=== PATIENT | female | born 1970 | race Caucasian/White ===

== ENCOUNTER 2020-04-07 00:19 | Inpatient (IN) ==
[2020-04-07] MEDS ORDERED: Naloxone 0.4 MG/ML INJ IVP PRN (04:24)
[2020-04-07] MEDS ORDERED: Acetaminophen IV 1,000 MG/100 ML BAG IVPB ONE (04:58)
[2020-04-07] MEDS: Piperacillin/Tazobactam 3.375 GM in 0.9 % Sodium Chloride Mini Bag 100 ML IVPB SCH ×2 (05:00→13:39)
[2020-04-07] MEDS: *HR* HYDROmorphone (PF) 1 MG/ML SYRINGE IVP PRN ×3 (05:00→13:38)
[2020-04-07 05:03] LABS: Basophils % 0.3 %; Eosinophils # 0.1 K/mcL (0.0-0.6); Eosinophils % 0.9 %; Hematocrit 41.3 % (35.3-44.9); Hemoglobin 13.7 g/dL (11.5-15.4); Immature Granulocytes % 0.5 % (0-4); Lymphocytes % 17.2 %; Mean Corpuscular HGB Conc 33.2 g/dL (31.6-35.5); Mean Corpuscular Hemoglobin 31.6 pg (28.0-33.3); Mean Corpuscular Volume 95.4 fL (83.0-100.0); Mean Platelet Volume 10.5 fL (9.4-12.4); Monocytes # 0.8 K/mcL (0.0-1.3); Monocytes % 6.7 %; Neutrophils # 8.6 K/mcL (1.6-8.9); Platelet Count 164 K/mcL (140-400); Red Blood Count 4.33 M/mcL (3.82-4.97); Red Cell Distribution Width 11.9 % (11.5-14.5); Segmented Neutrophils % 74.4 %; White Blood Count 11.6 K/mcL (4.3-11.1)
[2020-04-07] MEDS ORDERED: Ringers Solution, Lactated 1,000 ML IVC ONE (05:05)
[2020-04-07 05:13] LABS: INR 1.1; Prothrombin Time 12.6 Seconds (9.4-12.1)
[2020-04-07 05:20] LABS: Alanine Aminotransferase 79 Units/L (7-52); Albumin 3.6 g/dL (3.5-5.7); Albumin/Globulin Ratio 1.5 (1.1-2.2); Alkaline Phosphatase 66 Units/L (34-104); Aspartate Amino Transferase 65 Units/L (13-39); BUN/Creatinine Ratio 25 (6-26); Bilirubin,Direct 0.2 mg/dL (0.0-0.2); Bilirubin,Indirect 0.5 mg/dL (0.0-1.0); Bilirubin,Total 0.7 mg/dL (0.3-1.0); Blood Urea Nitrogen 14 mg/dL (6-20); Calcium 8.4 mg/dL (8.6-10.3); Carbon Dioxide 26 mEq/L (23-29); Chloride 107 mEq/L (98-107); Globulin 2.4 g/dL (2.4-3.5); Glucose 111 mg/dL (70-105); Osmolality,Calculated 289 (280-300); Potassium 3.8 mEq/L (3.5-5.1); Sodium 139 mEq/L (136-145); eGFR For African Americans > 60 (> 60); eGFR For Non-African Americans > 60 (> 60)
[2020-04-07] MEDS: Ringers Solution, Lactated 1,000 ML IVC SCH (07:16)
[2020-04-07] MEDS: Ondansetron 4 MG/2 ML VIAL IVP PRN (09:44)
[2020-04-07] MEDS ORDERED: *HR* Promethazine 25 MG/ML VIAL IM ONE (13:52)
[2020-04-07] MEDS ORDERED: *HR* FentaNYL (PF) 100 MCG/2 ML VIAL ONE (17:20)
[2020-04-07] MEDS ORDERED: *HR* Midazolam HCl 2 MG/2 ML VIAL ONE (17:20)
[2020-04-07] MEDS ORDERED: *HR* Propofol 200 MG/20 ML VIAL IVP ONE (17:20)
[2020-04-07] MEDS ORDERED: Dexamethasone 4 MG/ML VIAL ONE ×2 (17:24→21:37)
[2020-04-07] MEDS ORDERED: Lidocaine -MPF 2% 2 ML VIAL ONE (17:24)
[2020-04-07] MEDS ORDERED: Ondansetron 4 MG/2 ML VIAL ONE (17:24)
[2020-04-07] MEDS ORDERED: *HR* Rocuronium Bromide 50 MG/5 ML VIAL ONE ×2 (17:25→21:26)
[2020-04-07] MEDS ORDERED: *HR* Succinylcholine 200 MG/10 ML VIAL IVP ONE (17:25)
[2020-04-07] MEDS ORDERED: Lidocaine -MPF 4% 5 ML AMPUL ONE (17:38)
[2020-04-07 18:27] LABS: Adenovirus Not Detected (Not Detect); Bordetella Pertussis Not Detected (Not Detect); Chlamydophila pneumoniae Not Detected (Not Detect); Coronavirus 229E Not Detected (Not Detect); Coronavirus HKU1 Not Detected (Not Detect); Coronavirus NL63 Not Detected (Not Detect); Coronavirus OC43 Not Detected (Not Detect); Human Metapneumovirus Not Detected (Not Detect); Human Rhinovirus/Enterovirus Not Detected (Not Detect); Influenza A Subtype 2009 H1 Not Detected (Not Detect); Influenza B Not Detected (Not Detect); Mycoplasma pneumoniae Not Detected (Not Detect); Parainfluenza Virus 1 Not Detected (Not Detect); Parainfluenza Virus 2 Not Detected (Not Detect); Parainfluenza Virus 3 Not Detected (Not Detect); Parainfluenza Virus 4 Not Detected (Not Detect); Respiratory Syncytial Virus Not Detected (Not Detect)
[2020-04-07 18:30] LABS: SARS-CoV-2 DETECTED (Not Detect)
[2020-04-07] MEDS ORDERED: *HR* HYDROMORPHONE 2 MG/ML VIAL ONE (22:59)
[2020-04-08] MEDS: Piperacillin/Tazobactam 3.375 GM in 0.9 % Sodium Chloride Mini Bag 100 ML IVPB SCH ×4 (00:45→21:13)
[2020-04-08] MEDS: Ondansetron 4 MG/2 ML VIAL IVP PRN (00:48)
[2020-04-08] MEDS: Ringers Solution, Lactated 1,000 ML IVC SCH (01:17)
[2020-04-08] MEDS: *HR* HYDROmorphone (PF) 1 MG/ML SYRINGE IVP PRN (01:18)
[2020-04-08] MEDS ORDERED: Naloxone 0.4 MG/ML INJ IVP PRN (03:05)
[2020-04-08] MEDS ORDERED: Ondansetron 4 MG/2 ML VIAL IVP PRN (03:05)
[2020-04-08] MEDS ORDERED: Ringers Solution, Lactated 1,000 ML IVC SCH ×2 (03:05→10:30)
[2020-04-08] MEDS: Acetaminophen IV 1,000 MG/100 ML BAG IVPB SCH ×4 (04:04→21:14)
[2020-04-08] MEDS: *HR* Heparin 5,000 UNIT/ML VIAL SQ SCH ×3 (04:06→21:14)
[2020-04-08] MEDS: Morphine PCA 30 MG/ 30 ML 30 ML PCA.VIAL IVC PRN ×3 (04:30→18:22)
[2020-04-08 06:22] LABS: Basophils % 0.3 %; Hematocrit 43.4 % (35.3-44.9); Hemoglobin 14.4 g/dL (11.5-15.4); Immature Granulocytes % 0.4 % (0-4); Mean Corpuscular HGB Conc 33.2 g/dL (31.6-35.5); Mean Corpuscular Hemoglobin 31.9 pg (28.0-33.3); Mean Platelet Volume 10.7 fL (9.4-12.4); Monocytes # 0.7 K/mcL (0.0-1.3); Monocytes % 5.1 %; Neutrophils # 11.1 K/mcL (1.6-8.9); Platelet Count 202 K/mcL (140-400); Red Blood Count 4.52 M/mcL (3.82-4.97); Red Cell Distribution Width 11.9 % (11.5-14.5); Segmented Neutrophils % 86.2 %; White Blood Count 12.8 K/mcL (4.3-11.1)
[2020-04-08] MEDS: Pantoprazole 40 MG VIAL IVP SCH (06:24)
[2020-04-08 06:42] LABS: BUN/Creatinine Ratio 22 (6-26); Blood Urea Nitrogen 12 mg/dL (6-20); Calcium 8.8 mg/dL (8.6-10.3); Carbon Dioxide 24 mEq/L (23-29); Chloride 103 mEq/L (98-107); Glucose 155 mg/dL (70-105); Osmolality,Calculated 289 (280-300); Potassium 3.9 mEq/L (3.5-5.1); Sodium 138 mEq/L (136-145); eGFR For African Americans > 60 (> 60); eGFR For Non-African Americans > 60 (> 60)
[2020-04-08] MEDS: Dexamethasone Sodium Phos/PF 10 MG/ML VIAL IVP SCH (10:39)
[2020-04-08 11:34] LABS: C-Reactive Protein 75 mg/L (Less than 10); Lactate Dehydrogenase 238 Units/L (140-271)
[2020-04-08 11:52] LABS: Ferritin 90 ng/mL (10-120)
[2020-04-08 12:04] LABS: Albumin 3.5 g/dL (3.5-5.7); Albumin/Globulin Ratio 1.5 (1.1-2.2); Bilirubin,Direct 0.1 mg/dL (0.0-0.2); Bilirubin,Indirect 0.4 mg/dL (0.0-1.0); Bilirubin,Total 0.5 mg/dL (0.3-1.0); Globulin 2.4 g/dL (2.4-3.5); Total Protein 5.9 g/dL (6.4-8.9)
[2020-04-08] MEDS ORDERED: Isovue-370 500 ML BOTTLE IVP ONE (13:01)
[2020-04-09] MEDS ORDERED: 0.9 % Sodium Chloride 500 ML ONE (00:08)
[2020-04-09] MEDS ORDERED: 0.9 % Sodium Chloride 1,000 ML IVC SCH (00:15)
[2020-04-09] MEDS: Morphine PCA 30 MG/ 30 ML 30 ML PCA.VIAL IVC PRN ×4 (00:55→22:00)
[2020-04-09 05:15] LABS: Basophils # 0.1 K/mcL (0.0-0.2); Basophils % 0.4 %; Eosinophils % 0.1 %; Hemoglobin 13.2 g/dL (11.5-15.4); Immature Granulocytes % 0.9 % (0-4); Lymphocytes # 2.5 K/mcL (0.6-4.6); Lymphocytes % 14.2 %; Mean Corpuscular Hemoglobin 32.4 pg (28.0-33.3); Mean Corpuscular Volume 98.3 fL (83.0-100.0); Mean Platelet Volume 10.9 fL (9.4-12.4); Monocytes # 1.3 K/mcL (0.0-1.3); Monocytes % 7.4 %; Neutrophils # 13.3 K/mcL (1.6-8.9); Platelet Count 238 K/mcL (140-400); Red Blood Count 4.07 M/mcL (3.82-4.97); White Blood Count 17.3 K/mcL (4.3-11.1)
[2020-04-09 05:22] LABS: INR 1.1; Prothrombin Time 12.5 Seconds (9.4-12.1)
[2020-04-09 05:29] LABS: Alanine Aminotransferase 48 Units/L (7-52); Albumin 3.6 g/dL (3.5-5.7); Albumin/Globulin Ratio 1.4 (1.1-2.2); Alkaline Phosphatase 74 Units/L (34-104); Aspartate Amino Transferase 28 Units/L (13-39); BUN/Creatinine Ratio 21 (6-26); Bilirubin,Total 0.5 mg/dL (0.3-1.0); Blood Urea Nitrogen 16 mg/dL (6-20); Carbon Dioxide 33 mEq/L (23-29); Chloride 101 mEq/L (98-107); Globulin 2.6 g/dL (2.4-3.5); Glucose 149 mg/dL (70-105); Magnesium 2.2 mg/dL (1.6-2.6); Osmolality,Calculated 292 (280-300); Phosphorous 4.5 mg/dL (2.7-4.5); Potassium 3.8 mEq/L (3.5-5.1); Sodium 139 mEq/L (136-145); Total Protein 6.2 g/dL (6.4-8.9); eGFR For African Americans > 60 (> 60); eGFR For Non-African Americans > 60 (> 60)
[2020-04-09] MEDS: Piperacillin/Tazobactam 3.375 GM in 0.9 % Sodium Chloride Mini Bag 100 ML IVPB SCH ×3 (05:29→20:50)
[2020-04-09] MEDS: Pantoprazole 40 MG VIAL IVP SCH (05:30)
[2020-04-09] MEDS: *HR* Heparin 5,000 UNIT/ML VIAL SQ SCH ×3 (05:30→20:52)
[2020-04-09] MEDS: Acetaminophen IV 1,000 MG/100 ML BAG IVPB SCH ×2 (07:36→10:16)
[2020-04-09] MEDS: Dexamethasone Sodium Phos/PF 10 MG/ML VIAL IVP SCH (07:51)
[2020-04-09] MEDS ORDERED: GuaiFENesin Liq 200 MG/10 ML UDC PO PRN (08:58)
[2020-04-09] MEDS: Furosemide 20 MG/2 ML VIAL IVP SCH (17:43)
[2020-04-10] MEDS: Piperacillin/Tazobactam 3.375 GM in 0.9 % Sodium Chloride Mini Bag 100 ML IVPB SCH ×3 (05:20→21:10)
[2020-04-10] MEDS: *HR* Heparin 5,000 UNIT/ML VIAL SQ SCH ×3 (05:21→21:11)
[2020-04-10] MEDS: Pantoprazole 40 MG VIAL IVP SCH (05:35)
[2020-04-10] MEDS: Morphine PCA 30 MG/ 30 ML 30 ML PCA.VIAL IVC PRN ×2 (05:57→13:35)
[2020-04-10] MEDS ORDERED: Isovue-370 500 ML BOTTLE IVP ONE (08:56)
[2020-04-10 09:21] LABS: Basophils # 0.1 K/mcL (0.0-0.2); Basophils % 0.6 %; Eosinophils # 0.2 K/mcL (0.0-0.6); Eosinophils % 1.1 %; Hematocrit 37.5 % (35.3-44.9); Hemoglobin 12.3 g/dL (11.5-15.4); Immature Granulocytes % 2.2 % (0-4); Lymphocytes % 15.4 %; Mean Corpuscular HGB Conc 32.8 g/dL (31.6-35.5); Mean Corpuscular Hemoglobin 31.3 pg (28.0-33.3); Mean Corpuscular Volume 95.4 fL (83.0-100.0); Mean Platelet Volume 10.6 fL (9.4-12.4); Monocytes # 1.1 K/mcL (0.0-1.3); Monocytes % 5.7 %; Neutrophils # 14.3 K/mcL (1.6-8.9); Nucleated Red Blood Cells 0.1 /100 WBC (0); Platelet Count 215 K/mcL (140-400); Red Blood Count 3.93 M/mcL (3.82-4.97); White Blood Count 19.1 K/mcL (4.3-11.1)
[2020-04-10 09:22] LABS: INR 1.1; Prothrombin Time 12.5 Seconds (9.4-12.1)
[2020-04-10] MEDS ORDERED: Isovue-370 500 ML BOTTLE PO ONE (09:24)
[2020-04-10 09:40] LABS: Alanine Aminotransferase 33 Units/L (7-52); Albumin 3.3 g/dL (3.5-5.7); Albumin/Globulin Ratio 1.3 (1.1-2.2); Alkaline Phosphatase 65 Units/L (34-104); Aspartate Amino Transferase 23 Units/L (13-39); BUN/Creatinine Ratio 19 (6-26); Bilirubin,Total 0.5 mg/dL (0.3-1.0); Blood Urea Nitrogen 12 mg/dL (6-20); Calcium 8.8 mg/dL (8.6-10.3); Carbon Dioxide 32 mEq/L (23-29); Chloride 99 mEq/L (98-107); Globulin 2.5 g/dL (2.4-3.5); Glucose 138 mg/dL (70-105); Magnesium 1.8 mg/dL (1.6-2.6); Osmolality,Calculated 284 (280-300); Phosphorous 2.5 mg/dL (2.7-4.5); Potassium 3.4 mEq/L (3.5-5.1); Sodium 136 mEq/L (136-145); Total Protein 5.8 g/dL (6.4-8.9); eGFR For African Americans > 60 (> 60); eGFR For Non-African Americans > 60 (> 60)
[2020-04-10] MEDS: Dexamethasone Sodium Phos/PF 10 MG/ML VIAL IVP SCH (10:06)
[2020-04-10] MEDS: Furosemide 20 MG/2 ML VIAL IVP SCH (10:06)
[2020-04-10 12:17] LABS: Thyroid Stimulating Hormone 1.029 mcIU/mL (0.340-5.600)
[2020-04-10] MEDS ORDERED: *HR* FentaNYL (PF) 100 MCG/2 ML VIAL ONE (22:12)
[2020-04-10] MEDS ORDERED: *HR* Propofol 200 MG/20 ML VIAL IVP ONE (22:12)
[2020-04-10] MEDS ORDERED: *HR* Midazolam HCl 2 MG/2 ML VIAL ONE (22:12)
[2020-04-10] MEDS ORDERED: *HR* Rocuronium Bromide 50 MG/5 ML VIAL ONE (22:14)
[2020-04-10] MEDS ORDERED: *HR* Succinylcholine 200 MG/10 ML VIAL IVP ONE (22:14)
[2020-04-10] MEDS ORDERED: Lidocaine -MPF 2% 2 ML VIAL ONE (22:14)
[2020-04-10] MEDS ORDERED: CefOXitin 1,000 MG VIAL ONE (23:54)
[2020-04-11] MEDS ORDERED: *HR* Midazolam HCl 2 MG/2 ML VIAL ONE (00:56)
[2020-04-11] MEDS ORDERED: Acetaminophen IV 1,000 MG/100 ML BAG IVPB ONE (01:38)
[2020-04-11 01:40] LABS: ABG Base Excess 3 mEq/L (-2 to 3); ABG HCO3 29 mEq/L (21-27); ABG Oxygen Saturation 97 % (95-98); ABG PCO2 47 mmHg (35-45); ABG PH 7.39 pH Units (7.32-7.45); ABG PO2 95 mmHg (85-104); ABG TCO2 30 mEq/L (20-26); Blood Gas Modality ASSIST CONTROL; Blood Gas VT 480 cc
[2020-04-11] MEDS ORDERED: FentaNYL (PF) 1,000 MCG/100 ML IV.SOLN IVC SCH ×2 (02:00→06:30)
[2020-04-11 04:24] LABS: ABG Base Excess 2 mEq/L (-2 to 3); ABG HCO3 27 mEq/L (21-27); ABG Oxygen Saturation 100 % (95-98); ABG PCO2 42 mmHg (35-45); ABG PH 7.41 pH Units (7.32-7.45); ABG PO2 171 mmHg (85-104); ABG TCO2 28 mEq/L (20-26); Blood Gas VT 450 cc
[2020-04-11] MEDS: Piperacillin/Tazobactam 3.375 GM in 0.9 % Sodium Chloride Mini Bag 100 ML IVPB SCH ×3 (04:40→20:54)
[2020-04-11] MEDS: Pantoprazole 40 MG VIAL IVP SCH ×2 (05:35→07:28)
[2020-04-11] MEDS: *HR* Heparin 5,000 UNIT/ML VIAL SQ SCH ×3 (05:35→22:07)
[2020-04-11 05:51] LABS: Basophils % 0.2 %; Eosinophils % 0.2 %; Monocytes % 4.3 %; Nucleated Red Blood Cells 0.1 /100 WBC (0); Red Cell Distribution Width 12.4 % (11.5-14.5)
[2020-04-11 05:53] LABS: Basophils # 0.1 K/mcL (0.0-0.2); Eosinophils # 0.1 K/mcL (0.0-0.6); Hematocrit 42.6 % (35.3-44.9); Hemoglobin 14.5 g/dL (11.5-15.4); Immature Granulocytes % 3.7 % (0-4); Lymphocytes # 1.6 K/mcL (0.6-4.6); Lymphocytes % 5.6 %; Mean Corpuscular Hemoglobin 32.6 pg (28.0-33.3); Mean Corpuscular Volume 95.7 fL (83.0-100.0); Mean Platelet Volume 10.8 fL (9.4-12.4); Monocytes # 1.3 K/mcL (0.0-1.3); Neutrophils # 25.1 K/mcL (1.6-8.9); Platelet Count 274 K/mcL (140-400); Red Blood Count 4.45 M/mcL (3.82-4.97); White Blood Count 29.2 K/mcL (4.3-11.1)
[2020-04-11 06:01] LABS: INR 1.1; Prothrombin Time 12.3 Seconds (9.4-12.1)
[2020-04-11 06:11] LABS: Alanine Aminotransferase 25 Units/L (7-52); Albumin/Globulin Ratio 1.2 (1.1-2.2); Alkaline Phosphatase 80 Units/L (34-104); Aspartate Amino Transferase 19 Units/L (13-39); BUN/Creatinine Ratio 16 (6-26); Bilirubin,Total 0.6 mg/dL (0.3-1.0); Blood Urea Nitrogen 15 mg/dL (6-20); Calcium 8.5 mg/dL (8.6-10.3); Carbon Dioxide 26 mEq/L (23-29); Chloride 99 mEq/L (98-107); Globulin 2.5 g/dL (2.4-3.5); Glucose 168 mg/dL (70-105); Magnesium 1.9 mg/dL (1.6-2.6); Osmolality,Calculated 287 (280-300); Phosphorous 5.7 mg/dL (2.7-4.5); Potassium 3.6 mEq/L (3.5-5.1); Sodium 136 mEq/L (136-145); Total Protein 5.5 g/dL (6.4-8.9); eGFR For African Americans > 60 (> 60); eGFR For Non-African Americans > 60 (> 60)
[2020-04-11] MEDS ORDERED: Ondansetron 4 MG/2 ML VIAL IVP PRN (06:30)
[2020-04-11] MEDS ORDERED: Naloxone 0.4 MG/ML INJ IVP PRN (06:30)
[2020-04-11] MEDS ORDERED: Artificial Tears SOLN 15 ML BOTTLE BOTH EYES PRN (06:30)
[2020-04-11] MEDS ORDERED: GuaiFENesin Liq 200 MG/10 ML UDC PO PRN (06:30)
[2020-04-11 06:39] LABS: Platelet Estimate Normal (Normal)
[2020-04-11] MEDS: 0.9 % Sodium Chloride 1,000 ML IVC SCH ×2 (06:51→16:44)
[2020-04-11] MEDS ORDERED: Vancomycin 1,750 MG/517.5 ML IV.SOLN IVPB ONE ×3 (07:00)
[2020-04-11] MEDS: FentaNYL (PF) 1,000 MCG/100 ML IV.SOLN IVC SCH ×4 (07:16→23:03)
[2020-04-11] MEDS: Artificial Tears SOLN 15 ML BOTTLE BOTH EYES SCH ×5 (07:28→20:07)
[2020-04-11] MEDS ORDERED: Piperacillin/Tazobactam 3.375 GM in 0.9 % Sodium Chloride Mini Bag 100 ML IVPB SCH (08:00)
[2020-04-11] MEDS: Chlorhexidine Rinse 15 ML MOUTHWASH MM SCH ×2 (08:32→20:07)
[2020-04-11] MEDS ORDERED: Furosemide 20 MG/2 ML VIAL IVP SCH (09:00)
[2020-04-11] MEDS ORDERED: Dexamethasone Sodium Phos/PF 10 MG/ML VIAL IVP SCH (09:00)
[2020-04-11] MEDS: Micafungin 100 MG in 0.9 % Sodium Chloride Mini Bag 100 ML IVPB SCH (12:40)
[2020-04-11] MEDS: Ipratropium 1 PUFF INHALER IH SCH ×2 (16:35→21:41)
[2020-04-11] MEDS: Vancomycin 1,250 MG/262.5 ML IV.SOLN IVPB SCH (18:52)
[2020-04-12] MEDS: 0.9 % Sodium Chloride 1,000 ML IVC SCH ×3 (01:42→21:08)
[2020-04-12] MEDS ORDERED: *HR* Midazolam HCl 2 MG/2 ML VIAL IVP ONE (02:36)
[2020-04-12] MEDS ORDERED: Acetaminophen IV 1,000 MG/100 ML BAG IVPB ONE (02:39)
[2020-04-12] MEDS: FentaNYL (PF) 1,000 MCG/100 ML IV.SOLN IVC SCH ×4 (03:24→18:20)
[2020-04-12] MEDS: Artificial Tears SOLN 15 ML BOTTLE BOTH EYES SCH ×7 (03:43→23:17)
[2020-04-12] MEDS: Ipratropium 1 PUFF INHALER IH SCH ×4 (04:14→22:51)
[2020-04-12 04:31] LABS: ABG Base Excess 0 mEq/L (-2 to 3); ABG HCO3 26 mEq/L (21-27); ABG Oxygen Saturation 95 % (95-98); ABG PCO2 44 mmHg (35-45); ABG PH 7.37 pH Units (7.32-7.45); ABG PO2 78 mmHg (85-104); ABG TCO2 27 mEq/L (20-26); Blood Gas VT 450 cc
[2020-04-12] MEDS: Piperacillin/Tazobactam 3.375 GM in 0.9 % Sodium Chloride Mini Bag 100 ML IVPB SCH ×3 (05:00→21:04)
[2020-04-12] MEDS: *HR* Heparin 5,000 UNIT/ML VIAL SQ SCH (05:33)
[2020-04-12] MEDS: Pantoprazole 40 MG VIAL IVP SCH (05:33)
[2020-04-12 07:11] LABS: Mean Platelet Volume 10.9 fL (9.4-12.4); Nucleated Red Blood Cells 0.1 /100 WBC (0)
[2020-04-12 07:12] LABS: Hematocrit 35.7 % (35.3-44.9); Hemoglobin 11.6 g/dL (11.5-15.4); Mean Corpuscular HGB Conc 32.5 g/dL (31.6-35.5); Mean Corpuscular Hemoglobin 32.2 pg (28.0-33.3); Mean Corpuscular Volume 99.2 fL (83.0-100.0); Platelet Count 259 K/mcL (140-400); Red Cell Distribution Width 12.5 % (11.5-14.5)
[2020-04-12 07:14] LABS: INR 1.1; Prothrombin Time 12.4 Seconds (9.4-12.1)
[2020-04-12 07:17] LABS: White Blood Count 34.3 K/mcL (4.3-11.1)
[2020-04-12 07:27] LABS: Alanine Aminotransferase 28 Units/L (7-52); Albumin 2.7 g/dL (3.5-5.7); Albumin/Globulin Ratio 1.1 (1.1-2.2); Alkaline Phosphatase 75 Units/L (34-104); Aspartate Amino Transferase 44 Units/L (13-39); BUN/Creatinine Ratio 27 (6-26); Bilirubin,Total 0.4 mg/dL (0.3-1.0); Blood Urea Nitrogen 29 mg/dL (6-20); Calcium 7.6 mg/dL (8.6-10.3); Carbon Dioxide 25 mEq/L (23-29); Chloride 106 mEq/L (98-107); Globulin 2.5 g/dL (2.4-3.5); Glucose 159 mg/dL (70-105); Magnesium 2.2 mg/dL (1.6-2.6); Osmolality,Calculated 299 (280-300); Phosphorous 4.1 mg/dL (2.7-4.5); Potassium 3.6 mEq/L (3.5-5.1); Sodium 140 mEq/L (136-145); Total Protein 5.2 g/dL (6.4-8.9); eGFR For African Americans > 60 (> 60); eGFR For Non-African Americans 53 (> 60)
[2020-04-12 07:29] LABS: Albumin 2.7 g/dL (3.5-5.7); Albumin/Globulin Ratio 1.1 (1.1-2.2); Bilirubin,Direct 0.1 mg/dL (0.0-0.2); Bilirubin,Indirect 0.3 mg/dL (0.0-1.0); Bilirubin,Total 0.4 mg/dL (0.3-1.0); Globulin 2.5 g/dL (2.4-3.5); Total Protein 5.2 g/dL (6.4-8.9)
[2020-04-12 07:33] LABS: VBG Ionized Calcium 0.91 mmol/L (1.15-1.35)
[2020-04-12] MEDS: Vancomycin 1,250 MG/262.5 ML IV.SOLN IVPB SCH ×2 (07:33→18:07)
[2020-04-12] MEDS: Micafungin 100 MG in 0.9 % Sodium Chloride Mini Bag 100 ML IVPB SCH (07:34)
[2020-04-12] MEDS: Chlorhexidine Rinse 15 ML MOUTHWASH MM SCH ×2 (07:34→21:04)
[2020-04-12 07:58] LABS: Lymphocytes # 1.4 K/mcL (0.6-4.6); Monocytes # 0.7 K/mcL (0.0-1.3); Neutrophils # 32.2 K/mcL (1.6-8.9)
[2020-04-12 07:59] LABS: Platelet Estimate Normal (Normal); Toxic Granulation Present (Not Present)
[2020-04-12] MEDS ORDERED: *HR* Heparin 5,000 UNIT/ML VIAL IVP PRN ×2 (11:53)
[2020-04-12] MEDS: Heparin 25,000UNIT/250ML 1/2NS 25,000 UNIT/250 ML IV.SOLN IVC SCH (14:08)
[2020-04-12 15:07] LABS: Hematocrit 34.7 % (35.3-44.9); Hemoglobin 11.3 g/dL (11.5-15.4)
[2020-04-12 21:25] LABS: Hematocrit 33.9 % (35.3-44.9); Hemoglobin 10.9 g/dL (11.5-15.4)
[2020-04-13] MEDS: FentaNYL (PF) 1,000 MCG/100 ML IV.SOLN IVC SCH ×5 (00:14→22:17)
[2020-04-13] MEDS ORDERED: Acetaminophen IV 1,000 MG/100 ML BAG IVPB ONE (02:22)
[2020-04-13] MEDS: Artificial Tears SOLN 15 ML BOTTLE BOTH EYES SCH ×7 (04:01→23:58)
[2020-04-13] MEDS: Ipratropium 1 PUFF INHALER IH SCH ×4 (04:15→21:16)
[2020-04-13] MEDS: Piperacillin/Tazobactam 3.375 GM in 0.9 % Sodium Chloride Mini Bag 100 ML IVPB SCH ×3 (05:14→17:17)
[2020-04-13] MEDS: Vancomycin 1,250 MG/262.5 ML IV.SOLN IVPB SCH ×2 (05:15→18:25)
[2020-04-13] MEDS: Pantoprazole 40 MG VIAL IVP SCH (05:15)
[2020-04-13 05:27] LABS: ABG Base Excess 1 mEq/L (-2 to 3); ABG HCO3 28 mEq/L (21-27); ABG Oxygen Saturation 95 % (95-98); ABG PCO2 51 mmHg (35-45); ABG PH 7.34 pH Units (7.32-7.45); ABG PO2 81 mmHg (85-104); ABG TCO2 29 mEq/L (20-26); Blood Gas Modality ASSIST CONTROL; Blood Gas VT 450 cc
[2020-04-13 05:55] LABS: Mean Corpuscular Volume 102.1 fL (83.0-100.0); Nucleated Red Blood Cells 0.1 /100 WBC (0)
[2020-04-13 05:56] LABS: Mean Corpuscular HGB Conc 32.4 g/dL (31.6-35.5); Mean Platelet Volume 11.7 fL (9.4-12.4); Platelet Count 238 K/mcL (140-400); Red Blood Count 3.33 M/mcL (3.82-4.97); Red Cell Distribution Width 12.9 % (11.5-14.5); White Blood Count 26.8 K/mcL (4.3-11.1)
[2020-04-13 06:08] LABS: INR 1.1; Prothrombin Time 12.2 Seconds (9.4-12.1)
[2020-04-13 06:11] LABS: Lymphocytes # 3.2 K/mcL (0.6-4.6); Monocytes # 1.6 K/mcL (0.0-1.3); Neutrophils # 20.9 K/mcL (1.6-8.9); Platelet Estimate Normal (Normal); Smudge Cells Present (Not Present)
[2020-04-13 06:28] LABS: Albumin 2.7 g/dL (3.5-5.7); Bilirubin,Direct 0.1 mg/dL (0.0-0.2); Bilirubin,Indirect 0.2 mg/dL (0.0-1.0); Bilirubin,Total 0.3 mg/dL (0.3-1.0); Globulin 2.6 g/dL (2.4-3.5); Total Protein 5.3 g/dL (6.4-8.9)
[2020-04-13 06:57] LABS: VBG Ionized Calcium 0.89 mmol/L (1.15-1.35)
[2020-04-13] MEDS: 0.9 % Sodium Chloride 1,000 ML IVC SCH ×2 (07:13→17:15)
[2020-04-13] MEDS: Heparin 25,000UNIT/250ML 1/2NS 25,000 UNIT/250 ML IV.SOLN IVC SCH ×2 (07:14→17:18)
[2020-04-13] MEDS: Chlorhexidine Rinse 15 ML MOUTHWASH MM SCH ×2 (07:15→20:17)
[2020-04-13] MEDS: Micafungin 100 MG in 0.9 % Sodium Chloride Mini Bag 100 ML IVPB SCH (07:15)
[2020-04-13 07:36] LABS: Hematocrit 31.6 % (35.3-44.9); Hemoglobin 10.2 g/dL (11.5-15.4)
[2020-04-13 07:51] LABS: Alanine Aminotransferase 28 Units/L (7-52); Albumin 2.5 g/dL (3.5-5.7); Alkaline Phosphatase 70 Units/L (34-104); Aspartate Amino Transferase 58 Units/L (13-39); BUN/Creatinine Ratio 35 (6-26); Bilirubin,Total 0.3 mg/dL (0.3-1.0); Blood Urea Nitrogen 29 mg/dL (6-20); Calcium 7.5 mg/dL (8.6-10.3); Carbon Dioxide 25 mEq/L (23-29); Chloride 108 mEq/L (98-107); Globulin 2.5 g/dL (2.4-3.5); Glucose 133 mg/dL (70-105); Magnesium 2.5 mg/dL (1.6-2.6); Osmolality,Calculated 298 (280-300); Phosphorous 2.2 mg/dL (2.7-4.5); Potassium 3.5 mEq/L (3.5-5.1); Sodium 140 mEq/L (136-145); eGFR For African Americans > 60 (> 60); eGFR For Non-African Americans > 60 (> 60)
[2020-04-13] MEDS ORDERED: Lidocaine -MPF 1% 5 ML AMPUL INFILT ONE (08:28)
[2020-04-13] MEDS ORDERED: 0.9 % Sodium Chloride 250 ML IVC SCH ×2 (10:15→15:16)
[2020-04-13] MEDS ORDERED: *HR* Propofol 200 MG/20 ML VIAL IVP ONE (12:28)
[2020-04-13] MEDS ORDERED: *HR* FentaNYL (PF) 100 MCG/2 ML VIAL ONE (12:29)
[2020-04-13] MEDS ORDERED: *HR* Midazolam HCl 2 MG/2 ML VIAL ONE (12:29)
[2020-04-13] MEDS ORDERED: Heparin 1,000 UNITS/500 mL 500 ML ONE (12:30)
[2020-04-13] MEDS ORDERED: *HR* Vasopressin 20 UNIT/ML VIAL ONE (13:14)
[2020-04-13] MEDS ORDERED: Albumin Human 5% 12.5 GM/250 ML IV.SOLN ONE (13:21)
[2020-04-13] MEDS ORDERED: EPINEPHrine 1 MG in D5% in Water 250 ML IVC SCH (13:45)
[2020-04-13] MEDS ORDERED: Vasopressin 40 UNIT in D5% in Water 100 ML IVC SCH (13:45)
[2020-04-13] MEDS ORDERED: *HR* Heparin 5,000 UNIT/ML VIAL IVP PRN ×2 (15:16)
[2020-04-13] MEDS ORDERED: Ondansetron 4 MG/2 ML VIAL IVP PRN (15:16)
[2020-04-13] MEDS ORDERED: Artificial Tears SOLN 15 ML BOTTLE BOTH EYES PRN (15:16)
[2020-04-13] MEDS ORDERED: Naloxone 0.4 MG/ML INJ IVP PRN (15:16)
[2020-04-13] MEDS ORDERED: GuaiFENesin Liq 200 MG/10 ML UDC PO PRN (15:16)
[2020-04-13] MEDS ORDERED: Remdesivir 200 MG in 0.9 % Sodium Chloride 100 ML IVPB ONE (17:00)
[2020-04-13 17:16] LABS: Hematocrit 28.9 % (35.3-44.9); Hemoglobin 9.2 g/dL (11.5-15.4)
[2020-04-13] MEDS: EPINEPHrine 1 MG in D5% in Water 250 ML IVC SCH (17:18)
[2020-04-13] MEDS: Vasopressin 40 UNIT in D5% in Water 100 ML IVC SCH (17:18)
[2020-04-14] MEDS: Piperacillin/Tazobactam 3.375 GM in 0.9 % Sodium Chloride Mini Bag 100 ML IVPB SCH ×3 (01:39→17:00)
[2020-04-14] MEDS: FentaNYL (PF) 1,000 MCG/100 ML IV.SOLN IVC SCH ×3 (03:15→13:36)
[2020-04-14] MEDS: 0.9 % Sodium Chloride 1,000 ML IVC SCH ×3 (03:15→23:31)
[2020-04-14] MEDS: Artificial Tears SOLN 15 ML BOTTLE BOTH EYES SCH ×5 (03:16→21:25)
[2020-04-14 04:01] LABS: VBG Ionized Calcium 1.09 mmol/L (1.15-1.35)
[2020-04-14 04:02] LABS: Hematocrit 28.3 % (35.3-44.9); Mean Corpuscular HGB Conc 31.8 g/dL (31.6-35.5); Mean Corpuscular Hemoglobin 32.1 pg (28.0-33.3); Mean Corpuscular Volume 101.1 fL (83.0-100.0); Mean Platelet Volume 10.7 fL (9.4-12.4); Nucleated Red Blood Cells 0.1 /100 WBC (0); Platelet Count 235 K/mcL (140-400); White Blood Count 20.7 K/mcL (4.3-11.1)
[2020-04-14] MEDS: Ipratropium 1 PUFF INHALER IH SCH ×4 (04:06→21:20)
[2020-04-14 04:24] LABS: Alanine Aminotransferase 29 Units/L (7-52); Albumin 2.3 g/dL (3.5-5.7); Alkaline Phosphatase 57 Units/L (34-104); Aspartate Amino Transferase 64 Units/L (13-39); BUN/Creatinine Ratio 40 (6-26); Bilirubin,Direct 0.1 mg/dL (0.0-0.2); Bilirubin,Indirect 0.2 mg/dL (0.0-1.0); Bilirubin,Total 0.3 mg/dL (0.3-1.0); Blood Urea Nitrogen 21 mg/dL (6-20); Calcium 7.4 mg/dL (8.6-10.3); Carbon Dioxide 23 mEq/L (23-29); Chloride 113 mEq/L (98-107); Globulin 2.4 g/dL (2.4-3.5); Glucose 115 mg/dL (70-105); Magnesium 2.5 mg/dL (1.6-2.6); Osmolality,Calculated 298 (280-300); Phosphorous 1.7 mg/dL (2.7-4.5); Potassium 3.4 mEq/L (3.5-5.1); Sodium 142 mEq/L (136-145); Total Protein 4.7 g/dL (6.4-8.9); eGFR For African Americans > 60 (> 60); eGFR For Non-African Americans > 60 (> 60)
[2020-04-14 04:42] LABS: ABG Base Excess 0 mEq/L (-2 to 3); ABG HCO3 26 mEq/L (21-27); ABG Oxygen Saturation 96 % (95-98); ABG PCO2 49 mmHg (35-45); ABG PH 7.34 pH Units (7.32-7.45); ABG PO2 86 mmHg (85-104); ABG TCO2 28 mEq/L (20-26); Blood Gas VT 450 cc
[2020-04-14 05:02] LABS: Lymphocytes # 2.1 K/mcL (0.6-4.6); Monocytes # 0.4 K/mcL (0.0-1.3); Neutrophils # 17.8 K/mcL (1.6-8.9)
[2020-04-14 05:03] LABS: Platelet Estimate Normal (Normal); Toxic Granulation Present (Not Present)
[2020-04-14] MEDS: Pantoprazole 40 MG VIAL IVP SCH (05:42)
[2020-04-14] MEDS ORDERED: Calcium Gluconate 1gm/50mL 1 GM/50 ML BAG IVPB PRN (06:35)
[2020-04-14] MEDS ORDERED: Potassium Chloride 40 MEQ/200 ML BAG IVPB PRN (06:35)
[2020-04-14] MEDS: Micafungin 100 MG in 0.9 % Sodium Chloride Mini Bag 100 ML IVPB SCH (08:50)
[2020-04-14] MEDS: Chlorhexidine Rinse 15 ML MOUTHWASH MM SCH ×2 (09:16→21:23)
[2020-04-14] MEDS: Vancomycin 1,250 MG/262.5 ML IV.SOLN IVPB SCH ×2 (09:19→21:23)
[2020-04-14 10:10] LABS: Hematocrit 22.7 % (35.3-44.9); Hemoglobin 7.7 g/dL (11.5-15.4)
[2020-04-14] MEDS ORDERED: D10% in Water 500 ML IVC PRN (11:01)
[2020-04-14] MEDS: Heparin 25,000UNIT/250ML 1/2NS 25,000 UNIT/250 ML IV.SOLN IVC SCH (11:50)
[2020-04-14] MEDS: Acetaminophen IV 1,000 MG/100 ML BAG IVPB SCH ×2 (15:00→21:49)
[2020-04-14] MEDS ORDERED: Remdesivir 100 MG in 0.9 % Sodium Chloride 100 ML IVPB SCH (17:00)
[2020-04-14] MEDS ORDERED: Clinimix E 5%-15% SOLUTION 2,000 ML with MVI, adult with vitamin K 10 ML, Trace Eleme... IVC SCH (17:00)
[2020-04-14] MEDS: FentaNYL (PF) 2,500 MCG/50 ML IV.SOLN IVC SCH (18:30)
[2020-04-15] MEDS: Artificial Tears SOLN 15 ML BOTTLE BOTH EYES SCH ×4 (01:13→20:19)
[2020-04-15] MEDS: Piperacillin/Tazobactam 3.375 GM in 0.9 % Sodium Chloride Mini Bag 100 ML IVPB SCH ×3 (02:57→17:54)
[2020-04-15] MEDS: Ipratropium 1 PUFF INHALER IH SCH ×4 (03:13→22:16)
[2020-04-15] MEDS: Acetaminophen IV 1,000 MG/100 ML BAG IVPB SCH ×6 (04:14→22:18)
[2020-04-15] MEDS: Heparin 25,000UNIT/250ML 1/2NS 25,000 UNIT/250 ML IV.SOLN IVC SCH ×2 (04:16→14:14)
[2020-04-15 04:33] LABS: Hematocrit 27.4 % (35.3-44.9); Hemoglobin 8.9 g/dL (11.5-15.4); Mean Corpuscular HGB Conc 32.5 g/dL (31.6-35.5); Mean Corpuscular Hemoglobin 32.4 pg (28.0-33.3); Mean Corpuscular Volume 99.6 fL (83.0-100.0); Mean Platelet Volume 11.1 fL (9.4-12.4); Nucleated Red Blood Cells 0.2 /100 WBC (0); Platelet Count 252 K/mcL (140-400); Red Blood Count 2.75 M/mcL (3.82-4.97); Red Cell Distribution Width 13.1 % (11.5-14.5); White Blood Count 19.1 K/mcL (4.3-11.1)
[2020-04-15 04:53] LABS: Alanine Aminotransferase 24 Units/L (7-52); Albumin 2.2 g/dL (3.5-5.7); Albumin/Globulin Ratio 0.8 (1.1-2.2); Alkaline Phosphatase 54 Units/L (34-104); Aspartate Amino Transferase 46 Units/L (13-39); BUN/Creatinine Ratio 41 (6-26); Bilirubin,Indirect 0.2 mg/dL (0.0-1.0); Bilirubin,Total 0.2 mg/dL (0.3-1.0); Blood Urea Nitrogen 17 mg/dL (6-20); Calcium 7.1 mg/dL (8.6-10.3); Carbon Dioxide 25 mEq/L (23-29); Chloride 115 mEq/L (98-107); Globulin 2.6 g/dL (2.4-3.5); Glucose 148 mg/dL (70-105); Magnesium 2.3 mg/dL (1.6-2.6); Osmolality,Calculated 304 (280-300); Phosphorous 1.7 mg/dL (2.7-4.5); Potassium 3.2 mEq/L (3.5-5.1); Sodium 145 mEq/L (136-145); Total Protein 4.8 g/dL (6.4-8.9); eGFR For African Americans > 60 (> 60); eGFR For Non-African Americans > 60 (> 60)
[2020-04-15 05:01] LABS: ABG Base Excess 1 mEq/L (-2 to 3); ABG HCO3 26 mEq/L (21-27); ABG Oxygen Saturation 94 % (95-98); ABG PCO2 46 mmHg (35-45); ABG PH 7.37 pH Units (7.32-7.45); ABG PO2 75 mmHg (85-104); ABG TCO2 28 mEq/L (20-26); Blood Gas Modality AF; Blood Gas VT 450 cc
[2020-04-15 05:03] LABS: VBG Ionized Calcium 1.11 mmol/L (1.15-1.35)
[2020-04-15 05:20] LABS: Lymphocytes # 1.9 K/mcL (0.6-4.6); Monocytes # 0.4 K/mcL (0.0-1.3); Neutrophils # 15.7 K/mcL (1.6-8.9); Platelet Estimate Normal (Normal); Toxic Granulation Present (Not Present)
[2020-04-15 05:21] LABS: Large Platelets Present (Not Present)
[2020-04-15] MEDS: Micafungin 100 MG in 0.9 % Sodium Chloride Mini Bag 100 ML IVPB SCH (06:26)
[2020-04-15] MEDS: Pantoprazole 40 MG VIAL IVP SCH ×2 (06:26→11:52)
[2020-04-15] MEDS: Vancomycin 1,250 MG/262.5 ML IV.SOLN IVPB SCH (06:26)
[2020-04-15] MEDS ORDERED: Dexamethasone 4 MG/ML VIAL ONE (07:15)
[2020-04-15] MEDS ORDERED: Ondansetron 4 MG/2 ML VIAL ONE (07:15)
[2020-04-15] MEDS ORDERED: *HR* Phenylephrine 10 MG/ML VIAL ONE (07:15)
[2020-04-15] MEDS ORDERED: Lidocaine -MPF 2% 2 ML VIAL ONE (07:17)
[2020-04-15] MEDS ORDERED: *HR* Midazolam HCl 2 MG/2 ML VIAL ONE (07:19)
[2020-04-15] MEDS ORDERED: *HR* FentaNYL (PF) 100 MCG/2 ML VIAL ONE ×2 (07:19→08:57)
[2020-04-15] MEDS ORDERED: EPHEDrine 50 MG/ML VIAL ONE (07:20)
[2020-04-15] MEDS ORDERED: *HR* Rocuronium Bromide 50 MG/5 ML VIAL ONE (09:10)
[2020-04-15] MEDS ORDERED: *HR* HYDROMORPHONE 2 MG/ML VIAL ONE (09:12)
[2020-04-15] MEDS ORDERED: *HR* Midazolam HCl 5 MG/5 ML VIAL IVP ONE (09:45)
[2020-04-15] MEDS ORDERED: Ringers Solution, Lactated 1,000 ML ONE (11:45)
[2020-04-15] MEDS: 0.9 % Sodium Chloride 1,000 ML IVC SCH ×3 (11:50→22:06)
[2020-04-15] MEDS ORDERED: Artificial Tears SOLN 15 ML BOTTLE BOTH EYES PRN (12:15)
[2020-04-15] MEDS ORDERED: Naloxone 0.4 MG/ML INJ IVP PRN (12:15)
[2020-04-15] MEDS ORDERED: GuaiFENesin Liq 200 MG/10 ML UDC PO PRN (12:15)
[2020-04-15] MEDS ORDERED: D10% in Water 500 ML IVC PRN (12:15)
[2020-04-15] MEDS ORDERED: *HR* Heparin 5,000 UNIT/ML VIAL IVP PRN (12:15)
[2020-04-15] MEDS ORDERED: 0.9 % Sodium Chloride 250 ML IVC SCH (12:15)
[2020-04-15] MEDS ORDERED: Clinimix E 5%-15% SOLUTION 2,000 ML with MVI, adult with vitamin K 10 ML, Trace Eleme... IVC SCH ×3 (12:15→17:00)
[2020-04-15] MEDS ORDERED: Ondansetron 4 MG/2 ML VIAL IVP PRN (12:15)
[2020-04-15 12:46] LABS: ABG Base Excess 0 mEq/L (-2 to 3); ABG HCO3 25 mEq/L (21-27); ABG Oxygen Saturation 96 % (95-98); ABG PCO2 42 mmHg (35-45); ABG PH 7.39 pH Units (7.32-7.45); ABG PO2 81 mmHg (85-104); ABG TCO2 26 mEq/L (20-26); Blood Gas Modality AF; Blood Gas VT 550 cc
[2020-04-15 13:09] LABS: VBG Ionized Calcium 1.06 mmol/L (1.15-1.35)
[2020-04-15 13:33] LABS: Alanine Aminotransferase 23 Units/L (7-52); Albumin 2.2 g/dL (3.5-5.7); Albumin/Globulin Ratio 0.9 (1.1-2.2); Alkaline Phosphatase 54 Units/L (34-104); Aspartate Amino Transferase 40 Units/L (13-39); BUN/Creatinine Ratio 38 (6-26); Bilirubin,Total 0.2 mg/dL (0.3-1.0); Blood Urea Nitrogen 16 mg/dL (6-20); Calcium 7.1 mg/dL (8.6-10.3); Carbon Dioxide 24 mEq/L (23-29); Chloride 115 mEq/L (98-107); Creatine Kinase 894 Units/L (30-223); Globulin 2.5 g/dL (2.4-3.5); Glucose 198 mg/dL (70-105); Magnesium 2.2 mg/dL (1.6-2.6); Osmolality,Calculated 303 (280-300); Phosphorous 2.2 mg/dL (2.7-4.5); Potassium 3.4 mEq/L (3.5-5.1); Sodium 143 mEq/L (136-145); Total Protein 4.7 g/dL (6.4-8.9); eGFR For African Americans > 60 (> 60); eGFR For Non-African Americans > 60 (> 60)
[2020-04-15] MEDS: FentaNYL (PF) 2,500 MCG/50 ML IV.SOLN IVC SCH ×2 (15:35→20:27)
[2020-04-15] MEDS: Remdesivir 100 MG in 0.9 % Sodium Chloride 100 ML IVPB SCH (17:25)
[2020-04-15] MEDS: Calcium Gluconate 1gm/50mL 1 GM/50 ML BAG IVPB PRN (18:31)
[2020-04-15] MEDS ORDERED: Vancomycin 1,250 MG/262.5 ML IV.SOLN IVPB SCH (19:00)
[2020-04-15] MEDS: Vancomycin 1,500 MG/265 ML IV.SOLN IVPB SCH (20:20)
[2020-04-15] MEDS: Chlorhexidine Rinse 15 ML MOUTHWASH MM SCH (20:30)
[2020-04-16] MEDS: Artificial Tears SOLN 15 ML BOTTLE BOTH EYES SCH ×6 (00:03→23:57)
[2020-04-16] MEDS: Piperacillin/Tazobactam 3.375 GM in 0.9 % Sodium Chloride Mini Bag 100 ML IVPB SCH ×3 (02:18→18:13)
[2020-04-16 02:51] LABS: Eosinophils # 0.4 K/mcL (0.0-0.6); Hematocrit 27.2 % (35.3-44.9); Hemoglobin 8.7 g/dL (11.5-15.4); Mean Corpuscular Hemoglobin 32.3 pg (28.0-33.3); Mean Corpuscular Volume 101.1 fL (83.0-100.0); Nucleated Red Blood Cells 0.1 /100 WBC (0); Platelet Count 241 K/mcL (140-400); Red Blood Count 2.69 M/mcL (3.82-4.97); Red Cell Distribution Width 13.1 % (11.5-14.5); White Blood Count 21.2 K/mcL (4.3-11.1)
[2020-04-16 02:53] LABS: VBG Ionized Calcium 1.03 mmol/L (1.15-1.35)
[2020-04-16 03:10] LABS: Alanine Aminotransferase 19 Units/L (7-52); Albumin 2.1 g/dL (3.5-5.7); Albumin/Globulin Ratio 0.9 (1.1-2.2); Alkaline Phosphatase 49 Units/L (34-104); Aspartate Amino Transferase 30 Units/L (13-39); BUN/Creatinine Ratio 30 (6-26); Bilirubin,Indirect 0.2 mg/dL (0.0-1.0); Bilirubin,Total 0.2 mg/dL (0.3-1.0); Blood Urea Nitrogen 14 mg/dL (6-20); Calcium 6.9 mg/dL (8.6-10.3); Carbon Dioxide 26 mEq/L (23-29); Chloride 116 mEq/L (98-107); Globulin 2.4 g/dL (2.4-3.5); Glucose 164 mg/dL (70-105); Osmolality,Calculated 304 (280-300); Phosphorous 2.3 mg/dL (2.7-4.5); Potassium 3.2 mEq/L (3.5-5.1); Sodium 145 mEq/L (136-145); Total Protein 4.5 g/dL (6.4-8.9); eGFR For African Americans > 60 (> 60); eGFR For Non-African Americans > 60 (> 60)
[2020-04-16] MEDS: Calcium Gluconate 1gm/50mL 1 GM/50 ML BAG IVPB PRN (03:30)
[2020-04-16] MEDS: Potassium Chloride 40 MEQ/200 ML BAG IVPB PRN ×4 (03:31→23:02)
[2020-04-16] MEDS: Ipratropium 1 PUFF INHALER IH SCH ×4 (03:53→21:50)
[2020-04-16] MEDS: Acetaminophen IV 1,000 MG/100 ML BAG IVPB SCH ×4 (04:05→20:53)
[2020-04-16 04:08] LABS: Lymphocytes # 1.3 K/mcL (0.6-4.6); Monocytes # 0.9 K/mcL (0.0-1.3); Neutrophils # 18.7 K/mcL (1.6-8.9)
[2020-04-16 04:09] LABS: Platelet Estimate Normal (Normal); Reactive Lymphocytes Present (Not Present); Smudge Cells Present (Not Present); Toxic Granulation Present (Not Present)
[2020-04-16 04:31] LABS: ABG Base Excess 0 mEq/L (-2 to 3); ABG HCO3 25 mEq/L (21-27); ABG Oxygen Saturation 97 % (95-98); ABG PCO2 41 mmHg (35-45); ABG PO2 86 mmHg (85-104); ABG TCO2 26 mEq/L (20-26); Blood Gas VT 550 cc
[2020-04-16] MEDS: Pantoprazole 40 MG VIAL IVP SCH (05:47)
[2020-04-16] MEDS: Heparin 25,000UNIT/250ML 1/2NS 25,000 UNIT/250 ML IV.SOLN IVC SCH ×2 (06:44→23:14)
[2020-04-16] MEDS ORDERED: *HR* Adenosine 6 MG/2 ML SYRINGE IVP ONE (07:00)
[2020-04-16] MEDS: 0.9 % Sodium Chloride 1,000 ML IVC SCH ×3 (10:20→22:59)
[2020-04-16] MEDS: Chlorhexidine Rinse 15 ML MOUTHWASH MM SCH ×2 (10:24→20:50)
[2020-04-16] MEDS: Vancomycin 1,500 MG/265 ML IV.SOLN IVPB SCH ×2 (10:24→20:50)
[2020-04-16] MEDS: Micafungin 100 MG in 0.9 % Sodium Chloride Mini Bag 100 ML IVPB SCH (10:25)
[2020-04-16] MEDS ORDERED: Albumin 25% 12.5gm/50mL 12.5 GM/50 ML IV.SOLN IVPB ONE (11:21)
[2020-04-16] MEDS ORDERED: Furosemide 40 MG/4 ML VIAL IVP ONE (11:21)
[2020-04-16] MEDS ORDERED: *HR* Adenosine 6 MG/2 ML VIAL IVP ONE ×2 (11:42→11:43)
[2020-04-16] MEDS ORDERED: Dextrose Gel 15 GM/37.5 ML TUBE PO PRN ×2 (12:20)
[2020-04-16] MEDS ORDERED: *HR* Dextrose 50 % in Water (Vial) 50 ML VIAL IVP PRN (12:20)
[2020-04-16] MEDS ORDERED: D5% in Water 1,000 ML IVC PRN (12:20)
[2020-04-16 13:32] LABS: VBG Ionized Calcium 1.06 mmol/L (1.15-1.35)
[2020-04-16] MEDS: Calcium Gluconate 1gm/50mL 1 GM/50 ML BAG IVPB SCH ×2 (13:48→15:07)
[2020-04-16 13:51] LABS: BUN/Creatinine Ratio 30 (6-26); Blood Urea Nitrogen 14 mg/dL (6-20); Calcium 6.9 mg/dL (8.6-10.3); Carbon Dioxide 24 mEq/L (23-29); Chloride 116 mEq/L (98-107); Glucose 163 mg/dL (70-105); Magnesium 2.1 mg/dL (1.6-2.6); Osmolality,Calculated 304 (280-300); Phosphorous 2.6 mg/dL (2.7-4.5); Potassium 3.1 mEq/L (3.5-5.1); Sodium 145 mEq/L (136-145); eGFR For African Americans > 60 (> 60); eGFR For Non-African Americans > 60 (> 60)
[2020-04-16] MEDS: DilTIAZem 50 MG/50 ML IV.SOLN IVC SCH (13:51)
[2020-04-16] MEDS: FentaNYL (PF) 2,500 MCG/50 ML IV.SOLN IVC SCH ×2 (14:24→14:35)
[2020-04-16] MEDS: EPINEPHrine 1 MG in D5% in Water 250 ML IVC SCH (15:15)
[2020-04-16] MEDS ORDERED: Clinimix E 5%-15% SOLUTION 2,000 ML with MVI, adult with vitamin K 10 ML, Trace Eleme... IVC SCH (17:00)
[2020-04-16] MEDS: Remdesivir 100 MG in 0.9 % Sodium Chloride 100 ML IVPB SCH (17:22)
[2020-04-16] MEDS: Norepinephrine 4 MG/254 ML IV.SOLN IVC SCH ×2 (18:02→18:04)
[2020-04-16] MEDS: Vasopressin 40 UNIT in D5% in Water 100 ML IVC SCH ×2 (21:36→21:39)
[2020-04-16] MEDS: Insulin LISPRO 300 UNITS/3 ML VIAL SQ SCH (21:37)
[2020-04-16 21:50] LABS: VBG Ionized Calcium 1.09 mmol/L (1.15-1.35)
[2020-04-16 22:02] LABS: Phosphorous 2.3 mg/dL (2.7-4.5); Potassium 3.2 mEq/L (3.5-5.1)
[2020-04-17] MEDS: Insulin LISPRO 300 UNITS/3 ML VIAL SQ SCH ×5 (01:00→20:06)
[2020-04-17] MEDS: Piperacillin/Tazobactam 3.375 GM in 0.9 % Sodium Chloride Mini Bag 100 ML IVPB SCH ×3 (01:16→17:16)
[2020-04-17] MEDS: Acetaminophen IV 1,000 MG/100 ML BAG IVPB SCH ×4 (01:17→20:15)
[2020-04-17] MEDS: Calcium Gluconate 1gm/50mL 1 GM/50 ML BAG IVPB PRN (02:47)
[2020-04-17] MEDS: DilTIAZem 50 MG/50 ML IV.SOLN IVC SCH (03:17)
[2020-04-17] MEDS: Ipratropium 1 PUFF INHALER IH SCH ×4 (04:06→22:01)
[2020-04-17 04:31] LABS: ABG Base Excess 0 mEq/L (-2 to 3); ABG HCO3 25 mEq/L (21-27); ABG Oxygen Saturation 96 % (95-98); ABG PCO2 43 mmHg (35-45); ABG PH 7.38 pH Units (7.32-7.45); ABG PO2 86 mmHg (85-104); ABG TCO2 27 mEq/L (20-26); Blood Gas VT 550 cc
[2020-04-17 04:40] LABS: Hematocrit 25.8 % (35.3-44.9); Hemoglobin 8.1 g/dL (11.5-15.4); Mean Corpuscular HGB Conc 31.4 g/dL (31.6-35.5); Mean Corpuscular Hemoglobin 32.5 pg (28.0-33.3); Mean Corpuscular Volume 103.6 fL (83.0-100.0); Mean Platelet Volume 11.2 fL (9.4-12.4); Nucleated Red Blood Cells 0.4 /100 WBC (0); Platelet Count 281 K/mcL (140-400); Red Blood Count 2.49 M/mcL (3.82-4.97); Red Cell Distribution Width 13.3 % (11.5-14.5); White Blood Count 16.3 K/mcL (4.3-11.1)
[2020-04-17] MEDS: Artificial Tears SOLN 15 ML BOTTLE BOTH EYES SCH ×5 (04:43→19:49)
[2020-04-17 04:58] LABS: Alanine Aminotransferase 16 Units/L (7-52); Albumin 2.2 g/dL (3.5-5.7); Albumin/Globulin Ratio 0.8 (1.1-2.2); Alkaline Phosphatase 48 Units/L (34-104); Aspartate Amino Transferase 22 Units/L (13-39); BUN/Creatinine Ratio 28 (6-26); Bilirubin,Indirect 0.2 mg/dL (0.0-1.0); Bilirubin,Total 0.2 mg/dL (0.3-1.0); Blood Urea Nitrogen 13 mg/dL (6-20); Calcium 7.2 mg/dL (8.6-10.3); Carbon Dioxide 23 mEq/L (23-29); Chloride 114 mEq/L (98-107); Globulin 2.6 g/dL (2.4-3.5); Glucose 166 mg/dL (70-105); Magnesium 1.8 mg/dL (1.6-2.6); Osmolality,Calculated 302 (280-300); Phosphorous 3.3 mg/dL (2.7-4.5); Potassium 3.3 mEq/L (3.5-5.1); Sodium 144 mEq/L (136-145); Total Protein 4.8 g/dL (6.4-8.9); eGFR For African Americans > 60 (> 60); eGFR For Non-African Americans > 60 (> 60)
[2020-04-17] MEDS: Pantoprazole 40 MG VIAL IVP SCH (05:37)
[2020-04-17] MEDS: Micafungin 100 MG in 0.9 % Sodium Chloride Mini Bag 100 ML IVPB SCH (05:38)
[2020-04-17] MEDS: Potassium Chloride 40 MEQ/200 ML BAG IVPB PRN ×3 (05:55→18:10)
[2020-04-17 05:59] LABS: Lymphocytes # 1.6 K/mcL (0.6-4.6); Monocytes # 0.7 K/mcL (0.0-1.3); Neutrophils # 13.7 K/mcL (1.6-8.9)
[2020-04-17 06:00] LABS: Platelet Estimate Normal (Normal); Polychromasia 1+ (Not Present); Reactive Lymphocytes Present (Not Present); Smudge Cells Present (Not Present); Toxic Granulation Present (Not Present)
[2020-04-17] MEDS: Vancomycin 1,500 MG/265 ML IV.SOLN IVPB SCH ×2 (07:49→19:48)
[2020-04-17] MEDS: Chlorhexidine Rinse 15 ML MOUTHWASH MM SCH ×2 (07:49→19:48)
[2020-04-17] MEDS: 0.9 % Sodium Chloride 1,000 ML IVC SCH (09:02)
[2020-04-17] MEDS: Vasopressin 40 UNIT in D5% in Water 100 ML IVC SCH ×2 (09:08→19:41)
[2020-04-17] MEDS: Norepinephrine 4 MG/254 ML IV.SOLN IVC SCH (10:55)
[2020-04-17] MEDS: FentaNYL (PF) 2,500 MCG/50 ML IV.SOLN IVC SCH (12:30)
[2020-04-17] MEDS: EPINEPHrine 1 MG in D5% in Water 250 ML IVC SCH ×2 (13:29→19:41)
[2020-04-17 15:24] LABS: Magnesium 1.6 mg/dL (1.6-2.6); Potassium 2.9 mEq/L (3.5-5.1)
[2020-04-17] MEDS: Heparin 25,000UNIT/250ML 1/2NS 25,000 UNIT/250 ML IV.SOLN IVC SCH (16:56)
[2020-04-17] MEDS ORDERED: Clinimix E 5%-15% SOLUTION 2,000 ML with MVI, adult with vitamin K 10 ML, Trace Eleme... IVC SCH (17:00)
[2020-04-17] MEDS: Remdesivir 100 MG in 0.9 % Sodium Chloride 100 ML IVPB SCH (17:55)
[2020-04-18] MEDS: Acetaminophen IV 1,000 MG/100 ML BAG IVPB SCH ×4 (00:18→20:43)
[2020-04-18] MEDS: Artificial Tears SOLN 15 ML BOTTLE BOTH EYES SCH ×7 (00:18→22:57)
[2020-04-18] MEDS: Insulin LISPRO 300 UNITS/3 ML VIAL SQ SCH ×7 (00:18→23:11)
[2020-04-18] MEDS: Piperacillin/Tazobactam 3.375 GM in 0.9 % Sodium Chloride Mini Bag 100 ML IVPB SCH ×3 (02:15→18:09)
[2020-04-18 03:34] LABS: VBG Ionized Calcium 1.01 mmol/L (1.15-1.35)
[2020-04-18] MEDS: Ipratropium 1 PUFF INHALER IH SCH ×4 (04:17→22:29)
[2020-04-18 05:04] LABS: ABG Base Excess 1 mEq/L (-2 to 3); ABG HCO3 26 mEq/L (21-27); ABG Oxygen Saturation 94 % (95-98); ABG PCO2 44 mmHg (35-45); ABG PH 7.38 pH Units (7.32-7.45); ABG PO2 73 mmHg (85-104); ABG TCO2 27 mEq/L (20-26); Blood Gas Modality AF; Blood Gas VT 550 cc
[2020-04-18] MEDS: Vasopressin 40 UNIT in D5% in Water 100 ML IVC SCH (05:05)
[2020-04-18] MEDS: Pantoprazole 40 MG VIAL IVP SCH (05:30)
[2020-04-18] MEDS: Potassium Chloride 40 MEQ/200 ML BAG IVPB PRN ×3 (05:31→21:18)
[2020-04-18] MEDS: Calcium Gluconate 1gm/50mL 1 GM/50 ML BAG IVPB PRN (05:31)
[2020-04-18] MEDS: Norepinephrine 4 MG/254 ML IV.SOLN IVC SCH (05:31)
[2020-04-18] MEDS: Micafungin 100 MG in 0.9 % Sodium Chloride Mini Bag 100 ML IVPB SCH (05:46)
[2020-04-18] MEDS: Chlorhexidine Rinse 15 ML MOUTHWASH MM SCH ×2 (08:47→20:47)
[2020-04-18] MEDS: Vancomycin 1,500 MG/265 ML IV.SOLN IVPB SCH ×3 (09:19→23:00)
[2020-04-18] MEDS ORDERED: Furosemide 40 MG in 0.9 % Sodium Chloride 50 ML IV SCH (09:32)
[2020-04-18] MEDS ORDERED: D10% in Water 500 ML IVC PRN (10:08)
[2020-04-18 11:16] LABS: Basophils # 0.1 K/mcL (0.0-0.2); Basophils % 0.4 %; Eosinophils # 0.3 K/mcL (0.0-0.6); Eosinophils % 1.8 %; Hematocrit 25.4 % (35.3-44.9); Immature Granulocytes % 6.3 % (0-4); Lymphocytes # 1.6 K/mcL (0.6-4.6); Lymphocytes % 10.4 %; Mean Corpuscular HGB Conc 31.5 g/dL (31.6-35.5); Mean Corpuscular Hemoglobin 32.5 pg (28.0-33.3); Mean Platelet Volume 11.2 fL (9.4-12.4); Monocytes % 6.6 %; Neutrophils # 11.3 K/mcL (1.6-8.9); Nucleated Red Blood Cells 0.3 /100 WBC (0); Platelet Count 304 K/mcL (140-400); Red Blood Count 2.46 M/mcL (3.82-4.97); Red Cell Distribution Width 13.4 % (11.5-14.5); Segmented Neutrophils % 74.5 %; White Blood Count 15.1 K/mcL (4.3-11.1)
[2020-04-18 11:18] LABS: Mean Corpuscular Volume 103.3 fL (83.0-100.0)
[2020-04-18 11:41] LABS: Anisocytosis 1+ (Not Present); Platelet Estimate Normal (Normal)
[2020-04-18] MEDS: Furosemide 40 MG/4 ML VIAL IVP SCH ×2 (11:54→21:04)
[2020-04-18] MEDS: EPINEPHrine 1 MG in D5% in Water 250 ML IVC SCH (11:56)
[2020-04-18] MEDS: DilTIAZem 50 MG/50 ML IV.SOLN IVC SCH (12:00)
[2020-04-18] MEDS: FentaNYL (PF) 2,500 MCG/50 ML IV.SOLN IVC SCH (12:00)
[2020-04-18 12:05] LABS: Alanine Aminotransferase 13 Units/L (7-52); Albumin/Globulin Ratio 0.8 (1.1-2.2); Alkaline Phosphatase 53 Units/L (34-104); Aspartate Amino Transferase 20 Units/L (13-39); BUN/Creatinine Ratio 30 (6-26); Bilirubin,Direct 0.1 mg/dL (0.0-0.2); Bilirubin,Indirect 0.1 mg/dL (0.0-1.0); Bilirubin,Total 0.2 mg/dL (0.3-1.0); Blood Urea Nitrogen 13 mg/dL (6-20); Calcium 7.3 mg/dL (8.6-10.3); Carbon Dioxide 24 mEq/L (23-29); Chloride 112 mEq/L (98-107); Globulin 2.5 g/dL (2.4-3.5); Glucose 151 mg/dL (70-105); Magnesium 1.9 mg/dL (1.6-2.6); Osmolality,Calculated 295 (280-300); Phosphorous 2.5 mg/dL (2.7-4.5); Sodium 141 mEq/L (136-145); Total Protein 4.5 g/dL (6.4-8.9); eGFR For African Americans > 60 (> 60); eGFR For Non-African Americans > 60 (> 60)
[2020-04-18] MEDS: Heparin 25,000UNIT/250ML 1/2NS 25,000 UNIT/250 ML IV.SOLN IVC SCH (14:50)
[2020-04-18] MEDS ORDERED: [UNRECOGNIZED DRUG - OTHER] IVC SCH (17:00)
[2020-04-18] MEDS ORDERED: CLINIMIX E IVC SCH (17:00)
[2020-04-18] MEDS ORDERED: MVI IVC SCH (17:00)
[2020-04-18] MEDS ORDERED: PARENTERAL AMINO ACID 10% IVC SCH (17:00)
[2020-04-18] MEDS ORDERED: Clinimix E 5%-15% SOLUTION 2,000 ML with MVI, adult with vitamin K 10 ML, Trace Eleme... IVC SCH (17:00)
[2020-04-18 18:38] LABS: VBG Ionized Calcium 1.14 mmol/L (1.15-1.35)
[2020-04-18 18:52] LABS: Magnesium 2.1 mg/dL (1.6-2.6); Potassium 3.7 mEq/L (3.5-5.1)
[2020-04-18 20:22] LABS: Protein/Creatinine Ratio,Urine 3.5 mg/mg (0.00-0.20)
[2020-04-18] MEDS: Albumin 25% 25gram/100mL 25 GM/100 ML IV.SOLN IVPB SCH (20:59)
[2020-04-19] MEDS: Piperacillin/Tazobactam 3.375 GM in 0.9 % Sodium Chloride Mini Bag 100 ML IVPB SCH ×3 (01:29→17:38)
[2020-04-19] MEDS: Acetaminophen IV 1,000 MG/100 ML BAG IVPB SCH ×4 (01:30→20:31)
[2020-04-19] MEDS: Heparin 25,000UNIT/250ML 1/2NS 25,000 UNIT/250 ML IV.SOLN IVC SCH ×2 (01:31→08:26)
[2020-04-19] MEDS: FentaNYL (PF) 2,500 MCG/50 ML IV.SOLN IVC SCH ×2 (02:10→17:09)
[2020-04-19] MEDS: Insulin LISPRO 300 UNITS/3 ML VIAL SQ SCH ×5 (03:14→20:44)
[2020-04-19] MEDS: Vasopressin 40 UNIT in D5% in Water 100 ML IVC SCH (03:14)
[2020-04-19] MEDS: Artificial Tears SOLN 15 ML BOTTLE BOTH EYES SCH ×5 (03:15→20:44)
[2020-04-19] MEDS: Ipratropium 1 PUFF INHALER IH SCH ×4 (04:47→21:35)
[2020-04-19 04:54] LABS: ABG Base Excess 2 mEq/L (-2 to 3); ABG HCO3 28 mEq/L (21-27); ABG Oxygen Saturation 92 % (95-98); ABG PCO2 48 mmHg (35-45); ABG PH 7.38 pH Units (7.32-7.45); ABG PO2 67 mmHg (85-104); ABG TCO2 30 mEq/L (20-26); Blood Gas VT 550 cc
[2020-04-19 05:31] LABS: VBG Ionized Calcium 1.12 mmol/L (1.15-1.35)
[2020-04-19] MEDS: Pantoprazole 40 MG VIAL IVP SCH (05:37)
[2020-04-19 05:55] LABS: BUN/Creatinine Ratio 28 (6-26); Blood Urea Nitrogen 15 mg/dL (6-20); Carbon Dioxide 28 mEq/L (23-29); Chloride 106 mEq/L (98-107); Glucose 159 mg/dL (70-105); Magnesium 1.9 mg/dL (1.6-2.6); Osmolality,Calculated 292 (280-300); Phosphorous 3.7 mg/dL (2.7-4.5); Potassium 3.6 mEq/L (3.5-5.1); Sodium 139 mEq/L (136-145); eGFR For African Americans > 60 (> 60); eGFR For Non-African Americans > 60 (> 60)
[2020-04-19] MEDS: Potassium Chloride 40 MEQ/200 ML BAG IVPB PRN (06:56)
[2020-04-19] MEDS: Chlorhexidine Rinse 15 ML MOUTHWASH MM SCH ×2 (07:59→20:44)
[2020-04-19] MEDS: Micafungin 100 MG in 0.9 % Sodium Chloride Mini Bag 100 ML IVPB SCH (07:59)
[2020-04-19] MEDS: Albumin 25% 25gram/100mL 25 GM/100 ML IV.SOLN IVPB SCH ×2 (08:30→20:31)
[2020-04-19] MEDS: Furosemide 40 MG/4 ML VIAL IVP SCH ×2 (09:54→21:56)
[2020-04-19] MEDS: Norepinephrine 4 MG/254 ML IV.SOLN IVC SCH (10:39)
[2020-04-19] MEDS: Vancomycin 1,500 MG/265 ML IV.SOLN IVPB SCH ×2 (11:34→21:14)
[2020-04-19] MEDS: DilTIAZem 50 MG/50 ML IV.SOLN IVC SCH (11:35)
[2020-04-19] MEDS: EPINEPHrine 1 MG in D5% in Water 250 ML IVC SCH (11:35)
[2020-04-19] MEDS ORDERED: PARENTERAL AMINO ACID 10% IVC SCH (17:00)
[2020-04-19] MEDS ORDERED: Clinimix E 5%-15% SOLUTION 2,000 ML with MVI, adult with vitamin K 10 ML, Trace Eleme... IVC SCH (17:00)
[2020-04-19] MEDS ORDERED: [UNRECOGNIZED DRUG - OTHER] IVC SCH (17:00)
[2020-04-19] MEDS ORDERED: CLINIMIX E IVC SCH (17:00)
[2020-04-19] MEDS ORDERED: MVI IVC SCH (17:00)
[2020-04-20] MEDS: Artificial Tears SOLN 15 ML BOTTLE BOTH EYES SCH ×6 (00:30→20:27)
[2020-04-20] MEDS: Insulin LISPRO 300 UNITS/3 ML VIAL SQ SCH ×6 (00:30→20:26)
[2020-04-20] MEDS: Heparin 25,000UNIT/250ML 1/2NS 25,000 UNIT/250 ML IV.SOLN IVC SCH ×2 (00:55→21:26)
[2020-04-20] MEDS: Acetaminophen IV 1,000 MG/100 ML BAG IVPB SCH ×4 (01:01→21:30)
[2020-04-20] MEDS: Piperacillin/Tazobactam 3.375 GM in 0.9 % Sodium Chloride Mini Bag 100 ML IVPB SCH ×3 (01:02→18:20)
[2020-04-20] MEDS: Ipratropium 1 PUFF INHALER IH SCH ×4 (03:32→21:59)
[2020-04-20] MEDS: Vasopressin 40 UNIT in D5% in Water 100 ML IVC SCH (03:55)
[2020-04-20 04:10] LABS: ABG Base Excess 4 mEq/L (-2 to 3); ABG HCO3 29 mEq/L (21-27); ABG Oxygen Saturation 94 % (95-98); ABG PCO2 49 mmHg (35-45); ABG PH 7.39 pH Units (7.32-7.45); ABG PO2 71 mmHg (85-104); ABG TCO2 31 mEq/L (20-26); Blood Gas VT 550 cc
[2020-04-20] MEDS: Pantoprazole 40 MG VIAL IVP SCH (04:53)
[2020-04-20] MEDS: Micafungin 100 MG in 0.9 % Sodium Chloride Mini Bag 100 ML IVPB SCH (04:54)
[2020-04-20] MEDS: *HR* Heparin 5,000 UNIT/ML VIAL IVP PRN ×2 (04:56→15:35)
[2020-04-20 05:39] LABS: BUN/Creatinine Ratio 29 (6-26); Blood Urea Nitrogen 16 mg/dL (6-20); Calcium 8.4 mg/dL (8.6-10.3); Carbon Dioxide 28 mEq/L (23-29); Chloride 103 mEq/L (98-107); Glucose 137 mg/dL (70-105); Magnesium 1.8 mg/dL (1.6-2.6); Osmolality,Calculated 289 (280-300); Phosphorous 3.5 mg/dL (2.7-4.5); Potassium 3.2 mEq/L (3.5-5.1); Sodium 138 mEq/L (136-145); eGFR For African Americans > 60 (> 60); eGFR For Non-African Americans > 60 (> 60)
[2020-04-20] MEDS: Potassium Chloride 40 MEQ/200 ML BAG IVPB PRN ×2 (05:42→06:49)
[2020-04-20] MEDS: Chlorhexidine Rinse 15 ML MOUTHWASH MM SCH ×2 (07:59→20:39)
[2020-04-20] MEDS: Albumin 25% 25gram/100mL 25 GM/100 ML IV.SOLN IVPB SCH ×2 (07:59→20:40)
[2020-04-20] MEDS: Furosemide 40 MG/4 ML VIAL IVP SCH ×2 (08:00→22:10)
[2020-04-20] MEDS: FentaNYL (PF) 2,500 MCG/50 ML IV.SOLN IVC SCH (09:45)
[2020-04-20] MEDS: Vancomycin 1,500 MG/265 ML IV.SOLN IVPB SCH ×2 (10:42→20:43)
[2020-04-20] MEDS: Norepinephrine 4 MG/254 ML IV.SOLN IVC SCH (12:41)
[2020-04-20 13:01] LABS: Hematocrit 22.4 % (35.3-44.9); Hemoglobin 6.7 g/dL (11.5-15.4); Mean Corpuscular HGB Conc 29.9 g/dL (31.6-35.5); Mean Corpuscular Hemoglobin 32.4 pg (28.0-33.3); Mean Corpuscular Volume 108.2 fL (83.0-100.0); Mean Platelet Volume 11.5 fL (9.4-12.4); Nucleated Red Blood Cells 0.4 /100 WBC (0); Platelet Count 318 K/mcL (140-400); Red Blood Count 2.07 M/mcL (3.82-4.97); Red Cell Distribution Width 14.3 % (11.5-14.5); White Blood Count 11.4 K/mcL (4.3-11.1)
[2020-04-20] MEDS: DilTIAZem 50 MG/50 ML IV.SOLN IVC SCH (13:09)
[2020-04-20] MEDS: EPINEPHrine 1 MG in D5% in Water 250 ML IVC SCH (13:10)
[2020-04-20] MEDS ORDERED: 0.9 % Sodium Chloride 250 ML IVC SCH (13:15)
[2020-04-20 13:44] LABS: Lymphocytes # 1.6 K/mcL (0.6-4.6); Monocytes # 0.9 K/mcL (0.0-1.3); Neutrophils # 8.2 K/mcL (1.6-8.9); Platelet Estimate Normal (Normal)
[2020-04-20 13:45] LABS: Anisocytosis 1+ (Not Present)
[2020-04-20] MEDS ORDERED: 0.9 % Sodium Chloride 500 ML ONE (14:44)
[2020-04-20] MEDS: Potassium Chloride Elixir 20 MEQ/15 ML UDC GTUBE SCH ×2 (16:48→20:43)
[2020-04-20] MEDS ORDERED: Clinimix E 5%-15% SOLUTION 2,000 ML with MVI, adult with vitamin K 10 ML, Trace Eleme... IVC SCH (17:00)
[2020-04-21] MEDS: Insulin LISPRO 300 UNITS/3 ML VIAL SQ SCH ×7 (00:25→23:46)
[2020-04-21] MEDS: Artificial Tears SOLN 15 ML BOTTLE BOTH EYES SCH ×7 (00:25→23:46)
[2020-04-21] MEDS: *HR* Heparin 5,000 UNIT/ML VIAL IVP PRN (00:32)
[2020-04-21] MEDS: Acetaminophen IV 1,000 MG/100 ML BAG IVPB SCH ×4 (01:30→20:54)
[2020-04-21] MEDS: FentaNYL (PF) 2,500 MCG/50 ML IV.SOLN IVC SCH ×2 (02:20→12:34)
[2020-04-21] MEDS: Ipratropium 1 PUFF INHALER IH SCH ×4 (03:46→20:14)
[2020-04-21] MEDS: Piperacillin/Tazobactam 3.375 GM in 0.9 % Sodium Chloride Mini Bag 100 ML IVPB SCH ×3 (03:47→17:10)
[2020-04-21] MEDS: Pantoprazole 40 MG VIAL IVP SCH (05:00)
[2020-04-21 05:10] LABS: ABG Base Excess 4 mEq/L (-2 to 3); ABG HCO3 29 mEq/L (21-27); ABG Oxygen Saturation 89 % (95-98); ABG PCO2 45 mmHg (35-45); ABG PH 7.42 pH Units (7.32-7.45); ABG PO2 56 mmHg (85-104); ABG TCO2 30 mEq/L (20-26); Blood Gas Modality ASSIST CONTROL; Blood Gas VT 550 cc
[2020-04-21 05:43] LABS: Basophils # 0.1 K/mcL (0.0-0.2); Basophils % 0.7 %; Eosinophils # 0.2 K/mcL (0.0-0.6); Eosinophils % 2.1 %; Hematocrit 27.4 % (35.3-44.9); Lymphocytes % 17.4 %; Mean Corpuscular HGB Conc 32.5 g/dL (31.6-35.5); Mean Corpuscular Hemoglobin 30.7 pg (28.0-33.3); Mean Platelet Volume 11.7 fL (9.4-12.4); Monocytes # 1.3 K/mcL (0.0-1.3); Monocytes % 11.4 %; Neutrophils # 7.3 K/mcL (1.6-8.9); Nucleated Red Blood Cells 0.6 /100 WBC (0); Platelet Count 348 K/mcL (140-400); Red Cell Distribution Width 17.2 % (11.5-14.5); Segmented Neutrophils % 63.4 %; White Blood Count 11.5 K/mcL (4.3-11.1)
[2020-04-21 05:50] LABS: BUN/Creatinine Ratio 27 (6-26); Blood Urea Nitrogen 17 mg/dL (6-20); Calcium 9.1 mg/dL (8.6-10.3); Carbon Dioxide 30 mEq/L (23-29); Chloride 101 mEq/L (98-107); Glucose 136 mg/dL (70-105); Magnesium 1.8 mg/dL (1.6-2.6); Osmolality,Calculated 290 (280-300); Phosphorous 4.2 mg/dL (2.7-4.5); Potassium 3.4 mEq/L (3.5-5.1); Sodium 138 mEq/L (136-145); Triglycerides 427 mg/dL (< 150); eGFR For African Americans > 60 (> 60); eGFR For Non-African Americans > 60 (> 60)
[2020-04-21 05:58] LABS: Hemoglobin 8.9 g/dL (11.5-15.4); Mean Corpuscular Volume 94.5 fL (83.0-100.0)
[2020-04-21] MEDS: Micafungin 100 MG in 0.9 % Sodium Chloride Mini Bag 100 ML IVPB SCH (06:10)
[2020-04-21] MEDS ORDERED: Potassium Chloride Elixir 20 MEQ/15 ML UDC GTUBE ONE (08:30)
[2020-04-21] MEDS: Furosemide 40 MG/4 ML VIAL IVP SCH ×2 (08:52→20:50)
[2020-04-21] MEDS: Chlorhexidine Rinse 15 ML MOUTHWASH MM SCH ×2 (08:52→20:50)
[2020-04-21] MEDS: Albumin 25% 25gram/100mL 25 GM/100 ML IV.SOLN IVPB SCH ×2 (08:53→20:51)
[2020-04-21] MEDS: Heparin 25,000UNIT/250ML 1/2NS 25,000 UNIT/250 ML IV.SOLN IVC SCH (10:53)
[2020-04-21] MEDS: Vancomycin 1,500 MG/265 ML IV.SOLN IVPB SCH ×2 (10:54→20:55)
[2020-04-21] MEDS ORDERED: *HR* HYDROmorphone 2 MG/ML SYRINGE IVP PRN (11:08)
[2020-04-21] MEDS: Norepinephrine 4 MG/254 ML IV.SOLN IVC SCH (11:41)
[2020-04-21] MEDS: Morphine Sulfate 2 MG/ML SYRINGE IVP PRN ×2 (12:46→23:50)
[2020-04-21] MEDS: DilTIAZem 50 MG/50 ML IV.SOLN IVC SCH (13:23)
[2020-04-21] MEDS ORDERED: Clinimix E 5%-20% SOLUTION 2,000 ML with MVI, adult with vitamin K 10 ML, Trace Eleme... IVC SCH (17:00)
[2020-04-21] MEDS: *HR* HYDROmorphone 2 MG/ML SYRINGE IVP PRN (20:51)
[2020-04-21] MEDS: Meropenem 1,000 MG in 0.9 % Sodium Chloride Mini Bag 100 ML IVPB SCH (23:49)
[2020-04-22] MEDS: *HR* Heparin 5,000 UNIT/ML VIAL IVP PRN (02:03)
[2020-04-22] MEDS: Piperacillin/Tazobactam 3.375 GM in 0.9 % Sodium Chloride Mini Bag 100 ML IVPB SCH ×2 (02:06→08:53)
[2020-04-22] MEDS: Acetaminophen IV 1,000 MG/100 ML BAG IVPB SCH ×4 (02:07→21:41)
[2020-04-22] MEDS: Heparin 25,000UNIT/250ML 1/2NS 25,000 UNIT/250 ML IV.SOLN IVC SCH ×2 (02:08→15:15)
[2020-04-22] MEDS: *HR* HYDROmorphone 2 MG/ML SYRINGE IVP PRN ×2 (02:51→08:59)
[2020-04-22 03:32] LABS: BUN/Creatinine Ratio 26 (6-26); Blood Urea Nitrogen 16 mg/dL (6-20); Calcium 8.8 mg/dL (8.6-10.3); Carbon Dioxide 29 mEq/L (23-29); Chloride 101 mEq/L (98-107); Glucose 168 mg/dL (70-105); Magnesium 1.6 mg/dL (1.6-2.6); Osmolality,Calculated 293 (280-300); Potassium 3.2 mEq/L (3.5-5.1); Sodium 139 mEq/L (136-145); eGFR For African Americans > 60 (> 60); eGFR For Non-African Americans > 60 (> 60)
[2020-04-22] MEDS: Potassium Chloride 40 MEQ/200 ML BAG IVPB PRN (03:48)
[2020-04-22] MEDS: Ipratropium 1 PUFF INHALER IH SCH ×4 (03:57→21:48)
[2020-04-22] MEDS: Artificial Tears SOLN 15 ML BOTTLE BOTH EYES SCH ×6 (04:15→23:48)
[2020-04-22] MEDS: Insulin LISPRO 300 UNITS/3 ML VIAL SQ SCH ×5 (04:21→20:58)
[2020-04-22 04:29] LABS: ABG Base Excess 5 mEq/L (-2 to 3); ABG HCO3 31 mEq/L (21-27); ABG Oxygen Saturation 97 % (95-98); ABG PCO2 51 mmHg (35-45); ABG PH 7.39 pH Units (7.32-7.45); ABG PO2 90 mmHg (85-104); ABG TCO2 33 mEq/L (20-26); Blood Gas VT 550 cc
[2020-04-22 05:27] LABS: Basophils # 0.1 K/mcL (0.0-0.2); Basophils % 0.7 %; Eosinophils # 0.4 K/mcL (0.0-0.6); Eosinophils % 3.2 %; Hematocrit 26.9 % (35.3-44.9); Hemoglobin 8.8 g/dL (11.5-15.4); Immature Granulocytes % 4.2 % (0-4); Lymphocytes # 1.5 K/mcL (0.6-4.6); Lymphocytes % 13.7 %; Mean Corpuscular HGB Conc 32.7 g/dL (31.6-35.5); Mean Corpuscular Hemoglobin 31.7 pg (28.0-33.3); Mean Corpuscular Volume 96.8 fL (83.0-100.0); Mean Platelet Volume 11.1 fL (9.4-12.4); Monocytes # 1.3 K/mcL (0.0-1.3); Monocytes % 11.6 %; Neutrophils # 7.4 K/mcL (1.6-8.9); Nucleated Red Blood Cells 0.5 /100 WBC (0); Platelet Count 350 K/mcL (140-400); Red Blood Count 2.78 M/mcL (3.82-4.97); Red Cell Distribution Width 16.5 % (11.5-14.5); Segmented Neutrophils % 66.6 %; White Blood Count 11.1 K/mcL (4.3-11.1)
[2020-04-22 05:28] LABS: VBG Ionized Calcium 1.09 mmol/L (1.15-1.35)
[2020-04-22] MEDS: Micafungin 100 MG in 0.9 % Sodium Chloride Mini Bag 100 ML IVPB SCH (05:44)
[2020-04-22] MEDS: Pantoprazole 40 MG VIAL IVP SCH (05:45)
[2020-04-22] MEDS: Morphine Sulfate 2 MG/ML SYRINGE IVP PRN (05:45)
[2020-04-22 05:53] LABS: Phosphorous 3.6 mg/dL (2.7-4.5)
[2020-04-22] MEDS: FentaNYL (PF) 2,500 MCG/50 ML IV.SOLN IVC SCH (07:34)
[2020-04-22] MEDS: Calcium Gluconate 1gm/50mL 1 GM/50 ML BAG IVPB PRN (08:00)
[2020-04-22] MEDS: Chlorhexidine Rinse 15 ML MOUTHWASH MM SCH ×2 (08:16→21:45)
[2020-04-22] MEDS: Potassium Chloride Elixir 20 MEQ/15 ML UDC PO SCH ×2 (08:17→21:46)
[2020-04-22] MEDS: Albumin 25% 25gram/100mL 25 GM/100 ML IV.SOLN IVPB SCH ×2 (08:18→21:45)
[2020-04-22] MEDS: Furosemide 40 MG/4 ML VIAL IVP SCH ×2 (08:18→21:46)
[2020-04-22] MEDS: Meropenem 1,000 MG in 0.9 % Sodium Chloride Mini Bag 100 ML IVPB SCH ×3 (08:59→23:48)
[2020-04-22 10:21] LABS: Bilirubin,Urine Negative (Negative); Blood,Urine Moderate (Negative); Clarity,Urine Turbid (Clear); Color,Urine Yellow (Yellow); Glucose,Urine (UA) Normal (Normal); Ketones,Urine Negative (Negative); Leukocyte Esterase,Urine Negative (Negative); Mucus,Urine Few per lpf (None-Few); Nitrite,Urine Negative (Negative); Protein,Urine 100 mg/dL (Neg-Trace); RBC,Urine 15-30 per hpf (0-3); Specific Gravity,Urine > 1.030 (1.010-1.025); Squamous Epithelial Cell,Urine Few per hpf (None-Few); Urobilinogen,Urine Normal (Normal)
[2020-04-22] MEDS ORDERED: Isovue-370 500 ML BOTTLE IVP ONE ×2 (11:37→11:38)
[2020-04-22] MEDS: *HR* Metoprolol 5 MG/5 ML VIAL IVP PRN (12:17)
[2020-04-22] MEDS: Vancomycin 1,500 MG/265 ML IV.SOLN IVPB SCH ×2 (12:52→22:11)
[2020-04-22 13:08] LABS: VBG Ionized Calcium 1.17 mmol/L (1.15-1.35)
[2020-04-22 15:22] LABS: BUN/Creatinine Ratio 25 (6-26); Blood Urea Nitrogen 16 mg/dL (6-20); Calcium 9.3 mg/dL (8.6-10.3); Carbon Dioxide 32 mEq/L (23-29); Chloride 100 mEq/L (98-107); Glucose 153 mg/dL (70-105); Magnesium 1.9 mg/dL (1.6-2.6); Osmolality,Calculated 292 (280-300); Phosphorous 3.5 mg/dL (2.7-4.5); Potassium 3.6 mEq/L (3.5-5.1); Sodium 139 mEq/L (136-145); eGFR For African Americans > 60 (> 60); eGFR For Non-African Americans > 60 (> 60)
[2020-04-22] MEDS ORDERED: Clinimix E 5%-20% SOLUTION 2,000 ML with MVI, adult with vitamin K 10 ML, Trace Eleme... IVC SCH (17:00)
[2020-04-22] MEDS: DilTIAZem 50 MG/50 ML IV.SOLN IVC SCH (17:27)
[2020-04-22] MEDS: Norepinephrine 4 MG/254 ML IV.SOLN IVC SCH (17:28)
[2020-04-23] MEDS: Insulin LISPRO 300 UNITS/3 ML VIAL SQ SCH ×6 (00:31→21:22)
[2020-04-23] MEDS: Acetaminophen IV 1,000 MG/100 ML BAG IVPB SCH ×3 (02:42→15:42)
[2020-04-23] MEDS: FentaNYL (PF) 2,500 MCG/50 ML IV.SOLN IVC SCH ×2 (03:09→22:40)
[2020-04-23] MEDS: Ipratropium 1 PUFF INHALER IH SCH ×6 (04:26→23:44)
[2020-04-23] MEDS: Artificial Tears SOLN 15 ML BOTTLE BOTH EYES SCH ×5 (04:33→21:22)
[2020-04-23 04:41] LABS: ABG Base Excess 5 mEq/L (-2 to 3); ABG HCO3 30 mEq/L (21-27); ABG Oxygen Saturation 92 % (95-98); ABG PCO2 45 mmHg (35-45); ABG PH 7.44 pH Units (7.32-7.45); ABG PO2 62 mmHg (85-104); ABG TCO2 32 mEq/L (20-26); Blood Gas VT 450 cc
[2020-04-23 05:17] LABS: Basophils # 0.1 K/mcL (0.0-0.2); Basophils % 0.8 %; Eosinophils # 0.4 K/mcL (0.0-0.6); Eosinophils % 4.3 %; Hematocrit 24.7 % (35.3-44.9); Hemoglobin 7.9 g/dL (11.5-15.4); Immature Granulocytes % 4.4 % (0-4); Lymphocytes # 1.5 K/mcL (0.6-4.6); Lymphocytes % 17.3 %; Mean Corpuscular Volume 96.9 fL (83.0-100.0); Mean Platelet Volume 11.3 fL (9.4-12.4); Monocytes # 0.9 K/mcL (0.0-1.3); Monocytes % 10.1 %; Neutrophils # 5.6 K/mcL (1.6-8.9); Nucleated Red Blood Cells 0.3 /100 WBC (0); Platelet Count 329 K/mcL (140-400); Red Blood Count 2.55 M/mcL (3.82-4.97); Red Cell Distribution Width 16.1 % (11.5-14.5); Segmented Neutrophils % 63.1 %; White Blood Count 8.8 K/mcL (4.3-11.1)
[2020-04-23 05:26] LABS: BUN/Creatinine Ratio 30 (6-26); Blood Urea Nitrogen 19 mg/dL (6-20); Calcium 9.1 mg/dL (8.6-10.3); Carbon Dioxide 30 mEq/L (23-29); Chloride 99 mEq/L (98-107); Glucose 141 mg/dL (70-105); Osmolality,Calculated 291 (280-300); Phosphorous 3.3 mg/dL (2.7-4.5); Sodium 138 mEq/L (136-145); eGFR For African Americans > 60 (> 60); eGFR For Non-African Americans > 60 (> 60)
[2020-04-23] MEDS: Heparin 25,000UNIT/250ML 1/2NS 25,000 UNIT/250 ML IV.SOLN IVC SCH ×2 (05:42→18:05)
[2020-04-23] MEDS: Micafungin 100 MG in 0.9 % Sodium Chloride Mini Bag 100 ML IVPB SCH (06:02)
[2020-04-23] MEDS: Pantoprazole 40 MG VIAL IVP SCH (06:09)
[2020-04-23] MEDS: *HR* Metoprolol 5 MG/5 ML VIAL IVP PRN ×2 (07:20→16:30)
[2020-04-23] MEDS: Meropenem 1,000 MG in 0.9 % Sodium Chloride Mini Bag 100 ML IVPB SCH ×3 (07:42→23:48)
[2020-04-23] MEDS: Chlorhexidine Rinse 15 ML MOUTHWASH MM SCH ×2 (07:44→21:27)
[2020-04-23] MEDS: Albumin 25% 25gram/100mL 25 GM/100 ML IV.SOLN IVPB SCH ×2 (07:44→21:26)
[2020-04-23] MEDS: Potassium Chloride Elixir 20 MEQ/15 ML UDC PO SCH ×3 (07:44→21:27)
[2020-04-23] MEDS: Furosemide 40 MG/4 ML VIAL IVP SCH ×2 (07:45→21:27)
[2020-04-23] MEDS: Potassium Chloride 40 MEQ/200 ML BAG IVPB PRN ×2 (08:06→15:02)
[2020-04-23] MEDS: Vancomycin 1,500 MG/265 ML IV.SOLN IVPB SCH (13:47)
[2020-04-23 14:44] LABS: BUN/Creatinine Ratio 32 (6-26); Blood Urea Nitrogen 20 mg/dL (6-20); Calcium 9.2 mg/dL (8.6-10.3); Carbon Dioxide 30 mEq/L (23-29); Chloride 100 mEq/L (98-107); Glucose 146 mg/dL (70-105); Osmolality,Calculated 291 (280-300); Potassium 3.6 mEq/L (3.5-5.1); Sodium 138 mEq/L (136-145); eGFR For African Americans > 60 (> 60); eGFR For Non-African Americans > 60 (> 60)
[2020-04-23] MEDS: Norepinephrine 4 MG/254 ML IV.SOLN IVC SCH (15:41)
[2020-04-23] MEDS: DilTIAZem 50 MG/50 ML IV.SOLN IVC SCH (15:41)
[2020-04-23] MEDS ORDERED: MethylPREDNISolone 40 MG/ML VIAL IVP SCH (16:00)
[2020-04-23] MEDS ORDERED: Clinimix E 5%-20% SOLUTION 2,000 ML with MVI, adult with vitamin K 10 ML, Trace Eleme... IVC SCH (17:00)
[2020-04-23] MEDS ORDERED: Acetaminophen IV 1,000 MG/100 ML BAG IVPB ONE (21:27)
[2020-04-23] MEDS: MethylPREDNISolone 40 MG/ML VIAL IVP SCH (21:28)
[2020-04-23 22:26] LABS: Potassium 4.4 mEq/L (3.5-5.1)
[2020-04-24] MEDS: Artificial Tears SOLN 15 ML BOTTLE BOTH EYES SCH ×6 (00:18→20:39)
[2020-04-24] MEDS: Insulin LISPRO 300 UNITS/3 ML VIAL SQ SCH ×6 (00:18→20:30)
[2020-04-24] MEDS: Vancomycin 1,500 MG/265 ML IV.SOLN IVPB SCH ×2 (02:30→15:16)
[2020-04-24] MEDS: Ipratropium 1 PUFF INHALER IH SCH ×6 (03:54→23:19)
[2020-04-24 04:23] LABS: ABG Base Excess 4 mEq/L (-2 to 3); ABG HCO3 28 mEq/L (21-27); ABG Oxygen Saturation 96 % (95-98); ABG PCO2 37 mmHg (35-45); ABG PH 7.49 pH Units (7.32-7.45); ABG PO2 76 mmHg (85-104); ABG TCO2 29 mEq/L (20-26); Blood Gas VT 450 cc
[2020-04-24 04:58] LABS: Basophils % 0.6 %; Eosinophils % 2.6 %; Hematocrit 24.2 % (35.3-44.9); Hemoglobin 7.4 g/dL (11.5-15.4); Immature Granulocytes % 4.8 % (0-4); Mean Corpuscular HGB Conc 30.6 g/dL (31.6-35.5); Mean Corpuscular Hemoglobin 30.6 pg (28.0-33.3); Mean Platelet Volume 11.7 fL (9.4-12.4); Monocytes % 7.8 %; Platelet Count 301 K/mcL (140-400); Red Blood Count 2.42 M/mcL (3.82-4.97); Red Cell Distribution Width 15.8 % (11.5-14.5); Segmented Neutrophils % 72.2 %; White Blood Count 11.7 K/mcL (4.3-11.1)
[2020-04-24 04:59] LABS: Basophils # 0.1 K/mcL (0.0-0.2); Eosinophils # 0.3 K/mcL (0.0-0.6); Lymphocytes # 1.4 K/mcL (0.6-4.6); Monocytes # 0.9 K/mcL (0.0-1.3); Neutrophils # 8.5 K/mcL (1.6-8.9); Nucleated Red Blood Cells 0.3 /100 WBC (0)
[2020-04-24 05:09] LABS: BUN/Creatinine Ratio 38 (6-26); Blood Urea Nitrogen 21 mg/dL (6-20); Calcium 7.7 mg/dL (8.6-10.3); Carbon Dioxide 24 mEq/L (23-29); Chloride 107 mEq/L (98-107); Glucose 198 mg/dL (70-105); Magnesium 1.8 mg/dL (1.6-2.6); Osmolality,Calculated 295 (280-300); Phosphorous 2.9 mg/dL (2.7-4.5); Potassium 4.3 mEq/L (3.5-5.1); Sodium 138 mEq/L (136-145); eGFR For African Americans > 60 (> 60); eGFR For Non-African Americans > 60 (> 60)
[2020-04-24] MEDS: Pantoprazole 40 MG VIAL IVP SCH (05:37)
[2020-04-24] MEDS: Micafungin 100 MG in 0.9 % Sodium Chloride Mini Bag 100 ML IVPB SCH (05:37)
[2020-04-24] MEDS: Heparin 25,000UNIT/250ML 1/2NS 25,000 UNIT/250 ML IV.SOLN IVC SCH ×2 (07:11→17:56)
[2020-04-24] MEDS: DilTIAZem 50 MG/50 ML IV.SOLN IVC SCH ×3 (09:39→20:55)
[2020-04-24] MEDS: Meropenem 1,000 MG in 0.9 % Sodium Chloride Mini Bag 100 ML IVPB SCH (09:45)
[2020-04-24] MEDS: Chlorhexidine Rinse 15 ML MOUTHWASH MM SCH ×2 (09:46→20:42)
[2020-04-24] MEDS: Potassium Chloride Elixir 20 MEQ/15 ML UDC PO SCH ×3 (09:46→20:43)
[2020-04-24] MEDS: Albumin 25% 25gram/100mL 25 GM/100 ML IV.SOLN IVPB SCH ×2 (09:46→20:35)
[2020-04-24] MEDS: MethylPREDNISolone 40 MG/ML VIAL IVP SCH ×2 (09:46→20:35)
[2020-04-24] MEDS: Furosemide 40 MG/4 ML VIAL IVP SCH ×2 (09:47→20:43)
[2020-04-24] MEDS: FentaNYL (PF) 2,500 MCG/50 ML IV.SOLN IVC SCH (11:00)
[2020-04-24] MEDS: Norepinephrine 4 MG/254 ML IV.SOLN IVC SCH (13:05)
[2020-04-24] MEDS ORDERED: Colistin (Colistimethate) 300 MG in 0.9 % Sodium Chloride 50 ML IVPB ONE (16:30)
[2020-04-24] MEDS: MetroNIDAZOLE 500 MG/100 ML 500 MG/100 ML BAG IVPB SCH (16:51)
[2020-04-24] MEDS ORDERED: MVI IVC SCH (17:00)
[2020-04-24] MEDS ORDERED: CLINIMIX E IVC SCH (17:00)
[2020-04-24] MEDS ORDERED: PARENTERAL AMINO ACID 10% IVC SCH (17:00)
[2020-04-24] MEDS ORDERED: [UNRECOGNIZED DRUG - OTHER] IVC SCH (17:00)
[2020-04-24 18:42] LABS: Hematocrit 24.7 % (35.3-44.9); Hemoglobin 8.2 g/dL (11.5-15.4)
[2020-04-25] MEDS: Insulin LISPRO 300 UNITS/3 ML VIAL SQ SCH ×7 (00:30→23:53)
[2020-04-25] MEDS: MetroNIDAZOLE 500 MG/100 ML 500 MG/100 ML BAG IVPB SCH ×4 (00:30→23:42)
[2020-04-25] MEDS: Artificial Tears SOLN 15 ML BOTTLE BOTH EYES SCH ×7 (00:30→23:54)
[2020-04-25] MEDS: Ipratropium 1 PUFF INHALER IH SCH ×6 (03:24→23:50)
[2020-04-25] MEDS: Vancomycin 1,500 MG/265 ML IV.SOLN IVPB SCH ×3 (03:30→21:55)
[2020-04-25 04:32] LABS: ABG Base Excess 3 mEq/L (-2 to 3); ABG HCO3 29 mEq/L (21-27); ABG Oxygen Saturation 94 % (95-98); ABG PCO2 52 mmHg (35-45); ABG PH 7.36 pH Units (7.32-7.45); ABG PO2 75 mmHg (85-104); ABG TCO2 31 mEq/L (20-26); Blood Gas Modality AF; Blood Gas VT 400 cc
[2020-04-25] MEDS: FentaNYL (PF) 2,500 MCG/50 ML IV.SOLN IVC SCH ×2 (05:04→13:28)
[2020-04-25 06:40] LABS: BUN/Creatinine Ratio 51 (6-26); Blood Urea Nitrogen 32 mg/dL (6-20); Calcium 9.1 mg/dL (8.6-10.3); Carbon Dioxide 28 mEq/L (23-29); Chloride 100 mEq/L (98-107); Glucose 302 mg/dL (70-105); Magnesium 2.3 mg/dL (1.6-2.6); Osmolality,Calculated 300 (280-300); Potassium 5.1 mEq/L (3.5-5.1); Sodium 136 mEq/L (136-145); eGFR For African Americans > 60 (> 60); eGFR For Non-African Americans > 60 (> 60)
[2020-04-25] MEDS: Micafungin 100 MG in 0.9 % Sodium Chloride Mini Bag 100 ML IVPB SCH (07:22)
[2020-04-25] MEDS: Pantoprazole 40 MG VIAL IVP SCH (07:24)
[2020-04-25] MEDS: Potassium Chloride Elixir 20 MEQ/15 ML UDC PO SCH ×3 (10:50→21:53)
[2020-04-25] MEDS: Chlorhexidine Rinse 15 ML MOUTHWASH MM SCH ×2 (10:54→21:50)
[2020-04-25] MEDS: Albumin 25% 25gram/100mL 25 GM/100 ML IV.SOLN IVPB SCH ×2 (10:55→21:51)
[2020-04-25] MEDS: Furosemide 40 MG/4 ML VIAL IVP SCH ×2 (10:56→21:53)
[2020-04-25] MEDS: MethylPREDNISolone 40 MG/ML VIAL IVP SCH ×2 (10:56→21:53)
[2020-04-25] MEDS: Norepinephrine 4 MG/254 ML IV.SOLN IVC SCH (13:06)
[2020-04-25] MEDS: Colistin (Colistimethate) 120 MG in 0.9 % Sodium Chloride 50 ML IVPB SCH (16:09)
[2020-04-25] MEDS ORDERED: CLINIMIX E IVC SCH (17:00)
[2020-04-25] MEDS ORDERED: [UNRECOGNIZED DRUG - OTHER] IVC SCH (17:00)
[2020-04-25] MEDS ORDERED: CLINIMIX E IV SCH (17:00)
[2020-04-25] MEDS ORDERED: MVI IVC SCH (17:00)
[2020-04-25] MEDS ORDERED: PARENTERAL AMINO ACID 10% IV SCH (17:00)
[2020-04-25] MEDS ORDERED: [UNRECOGNIZED DRUG - OTHER] IV SCH (17:00)
[2020-04-25] MEDS ORDERED: PARENTERAL AMINO ACID 10% IVC SCH (17:00)
[2020-04-25] MEDS: Heparin 25,000UNIT/250ML 1/2NS 25,000 UNIT/250 ML IV.SOLN IVC SCH (21:50)
[2020-04-26] MEDS: FentaNYL (PF) 2,500 MCG/50 ML IV.SOLN IVC SCH ×2 (01:18→07:43)
[2020-04-26] MEDS: Heparin 25,000UNIT/250ML 1/2NS 25,000 UNIT/250 ML IV.SOLN IVC SCH ×2 (01:19→14:17)
[2020-04-26] MEDS: Vancomycin 1,500 MG/265 ML IV.SOLN IVPB SCH (01:40)
[2020-04-26] MEDS: Ipratropium 1 PUFF INHALER IH SCH ×4 (03:42→15:11)
[2020-04-26] MEDS: Colistin (Colistimethate) 120 MG in 0.9 % Sodium Chloride 50 ML IVPB SCH (04:46)
[2020-04-26] MEDS: Insulin LISPRO 300 UNITS/3 ML VIAL SQ SCH ×3 (05:03→12:52)
[2020-04-26] MEDS: Artificial Tears SOLN 15 ML BOTTLE BOTH EYES SCH ×3 (05:04→12:28)
[2020-04-26] MEDS: Micafungin 100 MG in 0.9 % Sodium Chloride Mini Bag 100 ML IVPB SCH (05:12)
[2020-04-26] MEDS: Pantoprazole 40 MG VIAL IVP SCH (05:13)
[2020-04-26 05:33] LABS: ABG Base Excess 3 mEq/L (-2 to 3); ABG HCO3 28 mEq/L (21-27); ABG Oxygen Saturation 97 % (95-98); ABG PCO2 46 mmHg (35-45); ABG PH 7.39 pH Units (7.32-7.45); ABG PO2 87 mmHg (85-104); ABG TCO2 29 mEq/L (20-26); Blood Gas Modality AF; Blood Gas VT 400 cc
[2020-04-26] MEDS: *HR* Heparin 5,000 UNIT/ML VIAL IVP PRN ×2 (06:28→13:00)
[2020-04-26 06:35] LABS: BUN/Creatinine Ratio 61 (6-26); Blood Urea Nitrogen 43 mg/dL (6-20); Calcium 9.3 mg/dL (8.6-10.3); Carbon Dioxide 28 mEq/L (23-29); Chloride 101 mEq/L (98-107); Glucose 318 mg/dL (70-105); Magnesium 2.2 mg/dL (1.6-2.6); Osmolality,Calculated 305 (280-300); Phosphorous 3.1 mg/dL (2.7-4.5); Potassium 5.2 mEq/L (3.5-5.1); Sodium 136 mEq/L (136-145); eGFR For African Americans > 60 (> 60); eGFR For Non-African Americans > 60 (> 60)
[2020-04-26 07:01] LABS: Hematocrit 25.9 % (35.3-44.9); Hemoglobin 7.9 g/dL (11.5-15.4); Mean Corpuscular HGB Conc 30.5 g/dL (31.6-35.5); Mean Corpuscular Hemoglobin 30.6 pg (28.0-33.3); Mean Corpuscular Volume 100.4 fL (83.0-100.0); Mean Platelet Volume 12.2 fL (9.4-12.4); Nucleated Red Blood Cells 0.9 /100 WBC (0); Platelet Count 306 K/mcL (140-400); Red Blood Count 2.58 M/mcL (3.82-4.97); Red Cell Distribution Width 15.8 % (11.5-14.5)
[2020-04-26 07:20] LABS: Lymphocytes # 2.7 K/mcL (0.6-4.6); Neutrophils # 13.3 K/mcL (1.6-8.9); Reactive Lymphocytes Present (Not Present)
[2020-04-26 07:21] LABS: Platelet Estimate Normal (Normal); Smudge Cells Present (Not Present)
[2020-04-26] MEDS: Potassium Chloride Elixir 20 MEQ/15 ML UDC PO SCH ×2 (07:49→15:03)
[2020-04-26] MEDS: Furosemide 40 MG/4 ML VIAL IVP SCH (07:57)
[2020-04-26] MEDS: MethylPREDNISolone 40 MG/ML VIAL IVP SCH (07:57)
[2020-04-26] MEDS: MetroNIDAZOLE 500 MG/100 ML 500 MG/100 ML BAG IVPB SCH (07:57)
[2020-04-26] MEDS: Chlorhexidine Rinse 15 ML MOUTHWASH MM SCH (07:58)
[2020-04-26] MEDS: Albumin 25% 25gram/100mL 25 GM/100 ML IV.SOLN IVPB SCH (08:29)
[2020-04-26] MEDS: Norepinephrine 4 MG/254 ML IV.SOLN IVC SCH (11:50)
[2020-04-26] MEDS ORDERED: D10% in Water 500 ML IVC PRN (12:58)
[2020-04-26] MEDS ORDERED: MVI IVC SCH (17:00)
[2020-04-26] MEDS ORDERED: CLINIMIX E IV SCH (17:00)
[2020-04-26] MEDS ORDERED: CLINIMIX IV SCH (17:00)
[2020-04-26] MEDS ORDERED: [UNRECOGNIZED DRUG - OTHER] IV SCH (17:00)
[2020-04-26] MEDS ORDERED: PARENTERAL AMINO ACID 10% IVC SCH (17:00)
[2020-04-26] MEDS ORDERED: CLINIMIX E IVC SCH (17:00)
[2020-04-26] MEDS ORDERED: PARENTERAL AMINO ACID 10% IV SCH ×2 (17:00)
[2020-04-26] MEDS ORDERED: [UNRECOGNIZED DRUG - OTHER] IVC SCH (17:00)
[2020-04-26] MEDS ORDERED: [UNRECOGNIZED DRUG - OTHER] IV SCH (17:00)
[2020-04-26 17:08] VITALS: BP 116/66
== END 2020-04-26 17:00 | disposition short-term general hospital (02) ==
LOC: 3ANU → SUATTDRO 03:01 → 2NENU 20:12
PROVIDERS: ADMIT Pharmacist; ATTEND Pharmacist